=== PATIENT | female | born 1950 | race Caucasian/White ===

== ENCOUNTER 2018-02-19 08:02 | Day surgery (SDC) | payer MEDICARE, OTHER, SELFPAY ==
[2018-02-19] VITALS (10 sets, daily range): BP systolic 114–161; BP diastolic 53–132; PULSE 82–110; RESP 16–18; TEMP 36.2–37.1; O2SAT 91–97; BMI 41.8
--- NOTE | 2018-02-19 09:21 | PCM.HP.STD ---
Problem List (1) Screening for intestinal cancer Status: Acute History of Present Illness Date of Admission: 02/19/18 The patient is a 67 year old F who presents for screening colonoscopy today. Her previous one was 10 years ago. She denies bright red blood per rectum or melena. She denies personal or family history of colon polyps or colon cancer. She states that her health otherwise has been generally stable. Past Medical History Allergies neomycin Allergy (Verified 02/13/18 09:06) Rash peanut Allergy (Verified 02/13/18 09:06) Shortness of breath quinine Allergy (Verified 02/13/18 09:06) Other Home Medications: Ambulatory Orders Medication Instructions Recorded Cyanocobalamin (Vitamin B-12) 1,000 mcg PO DAILY 02/13/18 [Vitamin B-12] Ergocalciferol [Vitamin D] 50,000 unit PO Q7D 02/13/18 Glucosamine/D3/Boswellia Yuki 1 each PO DAILY 02/13/18 [Glucosamine Daily Complex Tab] Levothyroxine Sodium [Synthroid] 150 mcg PO DAILY 02/13/18 Meloxicam [Mobic] 7.5 mg PO DAILY 02/13/18 Multivitamin [Multiple Vitamins] 1 each PO DAILY 02/13/18 Pyridoxine HCl [Vitamin B-6] 100 mg PO DAILY 02/13/18 Smoking Status: Never smoker Review of Systems Constitutional: Denies: Anorexia HEENT: Denies: Difficulty Swallowing Cardiovascular: Denies: Chest Pain Respiratory: Denies: Cough Gastrointestinal: Reports: - - Right flank pain intermittently with the bowel prep. Denies: Abdominal Pain, Hematochezia, Melena Musculoskeletal: Denies: Arm Pain Psychiatric: Denies: Anxiety VTE Information - Inpt Only VTE Present on Admission: No Patient Problems: Active and Suspected Problems Screening for intestinal cancer (Acute) - Physical Exam General: Alert, Oriented x3, Cooperative, No apparent distress HEENT: Atraumatic Oral: Moist Mucosa Neck: Supple Lungs: Clear to auscultation, Normal air movement Cardiovascular: Regular rate, Regular Rhythm Abdomen: Bowel Sounds Present, Soft, Non Tender, Obese, - Extremities: No clubbing Skin: No rashes Neurological: Cranial nerves II-XII grossly intact Psych/Mental Status: Normal Affect Vital Signs Temp Pulse Resp BP Pulse Ox 98.7 F 94 16 142/82 H 95 02/19/18 08:31 02/19/18 08:31 02/19/18 08:31 02/19/18 08:31 02/19/18 08:31 Oxygen Delivery Method Room Air Weight: 259 lb 7.745 oz Body Mass Index (BMI) 41.8 Assessment/Plan All Active Problems Screening for intestinal cancer (Acute) I am recommended the patient is screening colonoscopy. She is aware of the technique, benefits, risks and alternatives. She has had an opportunity to ask and have questions answered. She presents via our open access program. We will proceed as noted. Rajeev Ayala M.D., F.A.C.S.
--- NOTE | 2018-02-19 09:59 | OP.ENDO_ITS ---
Patient Name: Joanie Ramirez Procedure Date: 02/19/2018 9:11 AM Date of : 1950 Age: 67 Procedure: Colonoscopy Indications: Screening for colorectal malignant neoplasm Providers: Rajeev Ayala MD Referring MD: Rajeev Ayala MD Medicines: Midazolam 5.5 mg IV, Meperidine 200 mg IV, Glucagon 1 mg IV Patient Profile: Last Colonoscopy: 10 years ago. Complications: No immediate complications. Procedure: Pre-Anesthesia Assessment: - Prior to the procedure, a History and Physical was performed, and patient medications and allergies were reviewed. The patient's tolerance of previous anesthesia was also reviewed. The risks and benefits of the procedure and the sedation options and risks were discussed with the patient. All questions were answered, and informed consent was obtained. Prior Anticoagulants: The patient has taken no previous anticoagulant or antiplatelet agents. ASA Grade Assessment: II - A patient with mild systemic disease. After reviewing the risks and benefits, the patient was deemed in satisfactory condition to undergo the procedure. After I obtained informed consent, the scope was passed under direct vision. Throughout the procedure, the patient's blood pressure, pulse, and oxygen saturations were monitored continuously. The colonoscope was introduced through the anus and advanced to the sigmoid colon. The colonoscopy was technically difficult and complex due to restricted mobility of the colon. Successful completion of the procedure was aided by increasing the dose of sedation medication. The patient tolerated the procedure poorly due to the patient's body habitus and the patient's discomfort during the procedure. The quality of the bowel preparation was adequate to identify polyps. The colonoscopy was aborted. Moderate Sedation: Moderate (conscious) sedation was personally administered by the endoscopist. The following parameters were monitored: oxygen saturation, heart rate, blood pressure, and response to care. Total physician intraservice time was 15 minutes. Scope In: 9:28:28 AM Scope Out: 9:52:07 AM Total Procedure Duration Time 0 hours 23 minutes 39 seconds Findings: The perianal and digital rectal examinations were normal. Multiple diverticula were found in the sigmoid colon. Impression: - The procedure was aborted. - Diverticulosis in the sigmoid colon. Very tight turn. Adult scope would not pass. An upper scope passed but then became stuck. A pediatric colonoscopy passed the first area at 20cm but could not be advanced b/o patient discomfort. - No specimens collected. Recommendation: - Perform an air contrast barium enema today. - Discharge patient to home. - Resume previous diet. - Continue present medications. - Telephone my office for pathology results in 1 week. - Repeat colonoscopy in 10 years for screening purposes. Procedure Code(s): --- Professional --- 33813, 53, Colonoscopy, flexible; diagnostic, including collection of specimen(s) by brushing or washing, when performed (separate procedure) 63441, 59, Moderate sedation services provided by the same physician or other qualified health wound care center consultant performing the diagnostic or therapeutic service that the sedation supports, requiring the presence of an independent trained observer to assist in the monitoring of the patient's level of consciousness and physiological status; initial 15 minutes of intraservice time, patient age 5 years or older Diagnosis Code(s): --- Professional --- Z12.11, Encounter for screening for malignant neoplasm of colon Z53.8, Procedure and treatment not carried out for other reasons K57.30, Diverticulosis of large intestine without perforation or abscess without bleeding CPT copyright 2017 [employer]. All rights reserved. The codes documented in this report are preliminary and upon client services representative review may be revised to meet current compliance requirements. Rajeev Ayala MD 02/19/2018 9:59:00 AM This report has been signed electronically. Number of Addenda: 0 Note Initiated On: 02/19/2018 9:11 AM
--- OUTSIDE RECORDS SUMMARY | 2018-04-02 20:31 | XMS RPT_ITS ---
:1950 Author Organization OHIP Care Team Providers Name Role Phone RUSSELL SHELL Referring Unavailable TALAMPAS, RUSSELL D Attending Unavailable SHARMILA CONSTANTINO (KNOT BORER) Attending Unavailable TALAMPAS, RUSSELL D Referring Unavailable TALAMPAS, RUSSELL D Attending Unavailable TALAMPAS, RUSSELL D Referring Unavailable TALAMPAS, RUSSELL D Referring Unavailable Nurse, Standard Attending Unavailable Lea Shella Referring Unavailable Rajeev Ayala Attending Unavailable Lazarusampas, Russell Primary Care Unavailable Rajeev Ayala Referring Unavailable Rajeev Ayala Attending Unavailable Rajeev Ayala Referring Unavailable Lazarusampghazala, Russell Primary Care Unavailable Rajeev Ayala Attending Unavailable Rajeev Ayala Referring Unavailable PROBLEMS PROBLEMS DATE TYPE CONDITION / CODE ATTENDING STATUS SOURCE 03/04/2018 Unknown Z12.11 - Encounter Rajeev Ayala for screening for [facility] / Repository Z12.11(ICD-10) 12/12/2017 Active Encounter for NA Active [place] screening mamm[facility] for malignant [place] neoplasm of breast / Repository Z12.31(ICD-10) 10/17/2017 Active Vitamin D NA Active [place] deficiency, [facility] unspecified / [place] E55.9(ICD-10) Repository 10/17/2017 Active Cramp and spasm / NA Active [place] R25.2(ICD-10) [facility] [place] Repository 10/17/2017 Active Other specified NA Active [place] disorders of muscle [facility] / M62.89(ICD-10) [place] Repository 10/17/2017 Active Myalgia / NA Active [place] M79.1(ICD-10) [facility] [place] Repository 04/04/2017 Active Unknown / RUSSELL SHELL Active [place] UNK(Unknown) D [facility] [place] Repository 10/04/2007 Active Personal history of NA Active [place] malignant neoplasm [facility] of thyroid / [place] Z85.850(ICD-10) Repository 07/16/2007 Active Postprocedural NA Active [place] hypothyroidism / [facility] E89.0(ICD-10) [place] Repository 03/28/2017 Active Mixed hyperlipidemia NA Active [place] / E78.2(ICD-10) [facility] [place] Repository 03/28/2017 Active 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 [facility] therapy / [place] Z79.899(ICD-10) Repository PROCEDURES PROCEDURES No Procedure Records FoundRESULTS RESULTS ABDOMEN SINGLE VIEW Observed: 02/20/2018 Status: F Source: [place] 8:53 AM [facility] REPOSITORY [facility] Imaging Services [address] [place] [id number] Abdomen Single View MR#: [id number] Acct: [id number] Name: JOANIE MCKEON Rep #: [id number] : 1950 F 67 From: Michael Ruiz MD PCP: Russell Shell MD Status: REG CLI Study: Abdomen Single View Date of Exam: 02/20/18 Exam# [id number] Ordering Dr: Rajeev Ayala MD STUDY: X-RAY - ABDOMEN/PELVIS REASON FOR EXAM: Female, 67 years old. Incomplete colonoscopy. Patient was scheduled for barium enema. TECHNIQUE: Two AP supine views of the abdomen and pelvis. COMPARISON: None. FINDINGS: The patient was scheduled for a barium enema. The patient refused the barium enema due to pain during insertion of the rectal cannula. There is elevation of the right hemidiaphragm. There is an unremarkable bowel gas pattern. The visualized liver, spleen and kidneys are grossly normal in size and morphology. Normal soft tissue structures. There are diffuse degenerative changes of the visualized lumbar spine. RAD/Abdomen Single View IMPRESSION: Unremarkable bowel gas pattern. Electronically Signed: Michael Ruiz MD at 8:58 EST Tel [phone], Service support , CC: Russell Shell MD; Rajeev Ayala MD Vegetable Preparer: Signed HISTORY AND PHYSICAL Observed: 02/19/2018 Status: F Source: [place] EXAM 4:28 PM [facility] REPOSITORY [facility] Medical Records Department [address] [place] [address] History and Physical 02/19/18920 MR#: [id number] Acct: [id number] Name: JOANIE MCKEON Rep #: [id number] : 1950 67 From: Rajeev Ayala MD PCP: Russell Shell MD Status: [facility] Y Location: EN Problem List (1) Screening for intestinal cancer Status: Acute History of Present Illness Date of Admission: 02/19/18 The patient is a 67 year old F who presents for screening colonoscopy today. Her previous one was 10 years ago. She denies bright red blood per rectum or melena. She denies personal or family history of colon polyps or colon cancer. She states that her health otherwise has been generally stable. Past Medical History Allergies neomycin Allergy (Verified 02/13/18 09:06) Rash peanut Allergy (Verified 02/13/18 09:06) Shortness of breath quinine Allergy (Verified 02/13/18 09:06) Other Home Medications: Ambulatory Orders Medication Instructions Recorded Cyanocobalamin (Vitamin B-12) 1,000 mcg PO DAILY 02/13/18 Smoking Status: Never smoker Review of Systems Constitutional: Denies: Anorexia HEENT: Denies: Difficulty Swallowing Cardiovascular: Denies: Chest Pain Respiratory: Denies: Cough Gastrointestinal: Reports: - - Right flank pain intermittently with the bowel prep. Denies: Abdominal Pain, Hematochezia, Melena Musculoskeletal: Denies: Arm Pain Psychiatric: Denies: Anxiety VTE Information - Inpt Only VTE Present on Admission: No Patient Problems: Active and Suspected Problems Screening for intestinal cancer (Acute) - Physical Exam General: Alert, Oriented x3, Cooperative, No apparent distress HEENT: Atraumatic Oral: Moist Mucosa Neck: Supple Lungs: Clear to auscultation, Normal air movement Cardiovascular: Regular rate, Regular Rhythm Abdomen: Bowel Sounds Present, Soft, Non Tender, Obese, - Extremities: No clubbing Skin: No rashes Neurological: Cranial nerves II-XII grossly intact Psych/Mental Status: Normal Affect Vital Signs Temp Pulse Resp BP Pulse Ox 98.7 F 94 16 142/82 H 95 02/19/18 08:31 02/19/18 08:31 02/19/18 08:31 02/19/18 08:31 02/19/18 08:31 Oxygen Delivery Method Room Air Weight: 259 lb 7.745 oz Body Mass Index (BMI) 41.8 Assessment/Plan All Active Problems Screening for intestinal cancer (Acute) I am recommended the patient is screening colonoscopy. She is aware of the technique, benefits, risks and alternatives. She has had an opportunity to ask and have questions answered. She presents via our open access program. We will proceed as noted. Rajeev Ayala M.D., F.A.C.S. 02/19/18 [id number] <Electronically signed by Rajeev Ayala MD> Date Rajeev Ayala MD Cosigner Signature: Date (if applicable) CC: Russell Shell MD; Rajeev Ayala MD Signed OPERATIVE REPORT - Observed: 02/19/2018 Status: F Source: [place] [facility] 9:59 AM [facility] REPOSIT[facility] Medical Records Department [address] [place] [address] Operative Report - Endoscopy MR#: [id number] Acct: [id number] Name: JOANIE MCKEON Rep #: [id number] : 1950 67 From: Rajeev Ayala MD PCP: Russell Shell MD Status: REG [facility] Patient Name: Joanie Mckeon Procedure Date: 02/19/2018 9:11 AM Date of : 1950 Age: 67 Procedure: Colonoscopy Indications: Screening for colorectal malignant neoplasm Providers: Rajeev Ayala MD Referring MD: Rajeev Ayala MD Medicines: Midazolam 5.5 mg IV, Meperidine 200 mg IV, Glucagon 1 mg IV Patient Profile: Last Colonoscopy: 10 years ago. Complications: No immediate complications. Procedure: Pre-Anesthesia Assessment: - Prior to the procedure, a History and Physical was performed, and patient medications and allergies were reviewed. The patient's tolerance of previous anesthesia was also reviewed. The risks and benefits of the procedure and the sedation options and risks were discussed with the patient. All questions were answered, and informed consent was obtained. Prior Anticoagulants: The patient has taken no previous anticoagulant or antiplatelet agents. ASA Grade Assessment: II - A patient with mild systemic disease. After reviewing the risks and benefits, the patient was deemed in satisfactory condition to undergo the procedure. After I obtained informed consent, the scope was passed under direct vision. Throughout the procedure, the patient's blood pressure, pulse, and oxygen saturations were monitored continuously. The colonoscope was introduced through the anus and advanced to the sigmoid colon. The colonoscopy was technically difficult and complex due to restricted mobility of the colon. Successful completion of the procedure was aided by increasing the dose of sedation medication. The patient tolerated the procedure poorly due to the patient's body habitus and the patient's discomfort during the procedure. The quality of the bowel preparation was adequate to identify polyps. The colonoscopy was aborted. Moderate Sedation: Moderate (conscious) sedation was personally administered by the endoscopist. The following parameters were monitored: oxygen saturation, heart rate, blood pressure, and response to care. Total physician intraservice time was 15 minutes. Scope In: 9:28:28 AM Scope Out: 9:52:07 AM Total Procedure Duration Time 0 hours 23 minutes 39 seconds Findings: The perianal and digital rectal examinations were normal. Multiple diverticula were found in the sigmoid colon. Impression: - The procedure was aborted. - Diverticulosis in the sigmoid colon. Very tight turn. Adult scope would not pass. An upper scope passed but then became stuck. A pediatric colonoscopy passed the first area at 20cm but could not be advanced b/o patient discomfort. - No specimens collected. Recommendation: - Perform an air contrast barium enema today. - Discharge patient to home. - Resume previous diet. - Continue present medications. - Telephone my office for pathology results in 1 week. - Repeat colonoscopy in 10 years for screening purposes. Procedure Code(s): --- Professional --- 61055, 53, Colonoscopy, flexible; diagnostic, including collection of specimen(s) by brushing or washing, when performed (separate procedure) 27523, 59, Moderate sedation services provided by the same physician or other qualified health care tech performing the diagnostic or therapeutic service that the sedation supports, requiring the presence of an independent trained observer to assist in the monitoring of the patient's level of consciousness and physiological status; initial 15 minutes of intraservice time, patient age 5 years or older Diagnosis Code(s): --- Professional --- Z12.11, Encounter for screening for malignant neoplasm of colon Z53.8, Procedure and treatment not carried out for other reasons K57.30, Diverticulosis of large intestine without perforation or abscess without bleeding CPT copyright 2017 [place] [employer]. All rights reserved. The codes documented in this report are preliminary and upon radiologic therapist review may be revised to meet current compliance requirements. Rajeev Ayala MD 02/19/2018 9:59:00 AM This report has been signed electronically. Number of Addenda: 0 Note Initiated On: 02/19/2018 9:11 AM 02/19/18 0959 Date Rajeev Ayala MD Cosigner Signature: Date (if indicated) CC: Russell Shell MD; Rajeev Ayala MD Date Dictated: 02/19/18 0911 Date Transcribed: Vegetable Preparer: MINAL Signed CNCO Observed: 12/12/2017 Status: COMPLETED Source: [place] 10:16 AM [facility] REPOSITORY HNO ID: [id number] Author: Mammography Coordinator Service: (none) Author Type: Physician Type: Letter Filed: 12/13/2017 11:31 PM Note Text: December 12, 2017 PID: [id number] Joanie Mckeon [address] [place] [address] Dear Ms. Mckeon, We are pleased to inform you that the results of your recent breast imaging exam on 12/12/2017 are normal. Early detection of cancer is very important. We also understand recommendations regarding breast cancer screening are controversial. Please discuss with your primary care provider which strategy is best for you and whether a mammogram is right for you. Your imaging studies and report will be kept on file at [facility] as part of your permanent medical record and are available for your continuing care. Thank you for allowing us to help in meeting your health care needs. Sincerely, Dr. Slater Interpreting Radiologist [facility] (Normal over 40) [facility] SCREENING Observed: 12/12/2017 Status: F Source: [place] 10:09 AM [facility] REPOSITORY * * *Final Report* * * DATE OF EXAM: Dec 12 2017 10:09AM [facility] 0581 - [facility] SCREENING / PROCEDURE REASON: Encounter for screening mammogram for malignant neoplasm of breast * * * * Physician Interpretation * * * * RESULT: #[id number] - [facility] SCREENING BILATERAL DIGITAL SCREENING MAMMOGRAM WITH CAD: 12/12/2017 HISTORY: Encounter For Screening Mammogram For Malignant Neoplasm Of Breast /patient reports NO breast problems /priors available for comparison. RESULT: TECHNIQUE: The study was acquired using full field digital technology and interpreted from soft copy. Current study was also evaluated with a Computer Aided Detection (CAD). Comparison is made to exams dated: 01/05/2016 mammogram and 10/07/2014 mammogram - [facility]. The tissue of both breasts is predominantly fatty. No significant masses, calcifications, or other findings are seen in either breast. There has been no significant interval change. IMPRESSION: NEGATIVE There is no mammographic evidence of malignancy. A 1 year screening mammogram is recommended. David woodall/gaudencio:12/12/2017 10:16:53 Time Clock Inspector: Anastasia Rizvi RT(R)(Yari), [facility] letter sent: Normal over 40 Mammogram BI-RADS: 1 Negative Multiple national specialty organizations have released breast cancer screening guidelines for women at average risk for developing breast cancer - guidelines that are based on both evidence and opinion, yet differ on when to start and how often to screen for breast cancer. With representation from Breast Imaging, Internal Medicine, Women's Health, Family Medicine, and Medical/Surgical Oncology, the [facility] has carefully reviewed the data and reached the following consensus: 1) All women should engage in shared decision-making with their providers to decide when to start and how often to screen; 2) All women should have the opportunity to start screening mammography at age 40; 3) For women ages 45-55, we recommend annual screening mammograms; 4) For women ages 55 and over, we support both the transition from an annual to a biennial interval if this aligns more with patient's values and preferences, or continuation with annual screening; 5) All women should discuss with their providers when to stop screening mammograms. Vegetable Preparer: Gaudencio Transcribe Date/Time: Dec 12 2017 10:10A Dictated by: DAVID SLATER MD This examination was interpreted and the report reviewed and electronically signed by: DAVID SLATER MD on Dec 12 2017 10:16AM EST [id number] Collected: 10/17/2017 Status: F Source: [place] 10:20 AM [facility] REPOSIT[facility] TYPE CODE TESTS RESULT OUT OF REFERENCE UNITS RANGE LAB WBC 3.70-11.00 k/uL WBC 5.11 LAB RBC 3.90-5.20 m/uL RBC High 5.30 LAB HGB 11.5-15.5 g/dL Hemoglobin 15.1 LAB HCT 36.0-46.0 % High Hematocrit 47.9 LAB MCV 80.0-100.0 fL MCV 90.4 LAB MCH 26.0-34.0 pG MCH 28.5 LAB MCHC 30.5-36.0 g/dL MCHC 31.5 LAB RDWCV 11.5-15.0 % RDW-CV 14.2 LAB PLTCT 150-400 k/uL Platelet Count 202 LAB MPV 9.0-12.7 fL MPV 9.9 LAB ABSNUC <0.01 k/uL Absolute nRBC <0.01 Performed By: #### CBC, WSR, CK, CMP, LIPB, MG1, FT4, TSH, VITD #### [facility] [employer] [place], [place] [address] SED RATE WESTERGREN Collected: 10/17/2017 Status: F Source: [place] 10:20 AM [facility] [place] REPOSITORY TYPE CODE TESTS RESULT OUT OF REFERENCE UNITS RANGE LAB WSR 0-20 mm/hr Sed Rate High Westergren 22 Performed By: #### CBC, WSR, CK, CMP, LIPB, MG1, FT4, TSH, VITD #### [facility] [employer] [place], [place] [address] CK Collected: 10/17/2017 Status: F Source: [facility] 10:20 AM [facility] REPOSITORY TYPE CODE TESTS RESULT OUT OF RANGE REFERENCE UNITS LAB CK 42-196 U/L CK 106 Result Comment: Please note the updated, gender-specific reference range for this test (effective 03/09/2016). Performed By: #### CBC, WSR, CK, CMP, LIPB, MG1, FT4, TSH, VITD #### [facility] [employer] [address] [place], [place] [address] COMP METABOLIC PANEL Collected: 10/17/2017 Status: F Source: [place] 10:20 AM [facility] REPOSITORY TYPE CODE TESTS RESULT OUT OF REFERENCE UNITS RANGE LAB TP 6.3-8.0 g/dL Protein, Total 7.0 LAB ALB 3.9-4.9 g/dL Albumin 4.0 LAB CA 8.5-10.2 mg/dL Calcium, Total 9.7 LAB TBIL 0.2-1.3 mg/dL Bilirubin, Total 0.4 LAB ALKP 32-117 U/L Alkaline Phosphatase 107 LAB AST 13-35 U/L AST High 66 LAB GLU 74-99 mg/dL Glucose 93 Result Comment: The [place] [employer] Association (ADA) provides guidance for cutoff values for fasting glucose and random glucose. The ADA defines fasting as no caloric intake for at least 8 hours. Fas ting plasma glucose results between 100 to 125 mg/dL indicate increased risk for diabetes (prediabetes). Fasting plasma glucose results greater than or equal to 126 mg/dL meet the criteria for diagnosis of diabetes. In the absence of unequivocal hyperglycemia, results should be confirmed by repeat testing. In a patient with classic symptoms of hyperglycemia or hyperglycemic crisis, random plasma glucose results greater than or equal to 200 mg/dL meet the criteria for diagnosis of diabetes. Reference: Standards of Medical Care in Diabetes 2016, [place] [employer]. Diabetes Care. 2016.39(Suppl 1). LAB BUN 7-21 mg/dL BUN 14 LAB CRET 0.58-0.96 mg/dL Creatinine 0.73 LAB NA 136-144 mmol/L Sodium 142 LAB K 3.7-5.1 mmol/L Potassium 4.6 LAB CL 97-105 mmol/L Chloride 102 LAB CO2 22-30 mmol/L CO2 26 LAB AGAP 9-18 mmol/L Anion Gap 14 LAB ALT 7-38 U/L ALT High 68 LAB GFRAA eGFR- Amer. >60 LAB GFRNAA . eGFR-All Other Races >60 Result Comment: eGFR (Estimated GFR) Units of measure: mL/min/1.73 meters squared eGFR is derived from the reexpressed MDRD Study equation using the following parameters: serum creatinine, age, gender and race. The creatinine assay has been calibrated to be traceable to IDMS. An eGFR <60 mL/min/1.73m2 for >3 months is consistent with chronic kidney disease. Refer to KDOQI guidelines for clinical interpretation. In patients with unstable renal function, e.g. those with acute kidney injury, the eGFR may not accurately reflect actual GFR. Performed By: #### CBC, WSR, CK, CMP, LIPB, MG1, FT4, TSH, VITD #### [facility] [address] [place] [id number] LIPID PANEL, BASIC Collected: 10/17/2017 Status: F Source: [place] 10:20 AM [facility] REPOSITORY TYPE CODE TESTS RESULT OUT OF REFERENCE UNITS RANGE LAB CHOL <200 mg/dL Cholesterol High 209 Result Comment: <200 mg/dL, Desirable 200-239 mg/dL, Borderline high >239 mg/dL, High LAB TRIGLY <150 mg/dL Triglyceride High 152 Result Comment: <150 mg/dL, Normal 150-199 mg/dL, Borderline high 200-499 mg/dL, High >499 mg/dL, Very high LAB HDL >39 mg/dL HDL-Cholesterol 48 Result Comment: 40-59 mg/dL, Acceptable >59 mg/dL, High: Negative risk factor for coronary heart disease <40 mg/dL, Low: Positive risk factor for coronary heart disease LAB LDL <100 mg/dL LDL-Cholesterol High 131 Result Comment: <100 mg/dL, Optimal 100-129 mg/dL, Near optimal/above optimal 130-159 mg/dL, Borderline high 160-189 mg/dL, High >189 mg/dL, Very high Secondary prevention optimal LDL Cholesterol levels are recommended to be < 70 mg/dL LAB NONHDL <130 mg/dL Non HDL High Cholesterol 161 Result Comment: <130 mg/dL, Optimal 130-159 mg/dL, Near optimal/above optimal 160-189 mg/dL, Borderline high 190-219 mg/dL, High >219 mg/dL, Very high Secondary prevention optimal non HDL Cholesterol levels are recommended to be < 100 mg/dL LAB FT hrs Fasting Time 12 LAB VLDL <30 mg/dL High VLDL Cholesterol 30 LAB TCHDL <5.10 TC:HDL Ratio 4.35 LAB LDLHDL <2.54 High LDL:HDL Ratio 2.73 Result Comment: Reference: 1. National Cholesterol Education Program ATP III Guideline At-A-Glance Quick Desk Reference: National Heart, Lung, and Blood [place]. National Institutes of Health. 2001: NIH Publication No. 01-3305. 2. An International Atherosclerosis Society position paper: global recommendations for the management of dyslipidemia: executive summary, Atherosclerosis. 2014: 232(2):410-413. Performed By: #### CBC, WSR, CK, CMP, LIPB, MG1, FT4, TSH, VITD #### [facility] [employer] [address] [place] [address] MAGNESIUM Collected: 10/17/2017 Status: F Source: [place] 10:20 AM [facility] REPOSITORY TYPE CODE TESTS RESULT OUT OF REFERENCE UNITS RANGE LAB MG 1.7-2.3 mg/dL Magnesium 2.2 Performed By: #### CBC, WSR, CK, CMP, LIPB, MG1, FT4, TSH, VITD #### [facility] [employer] [address] [place] [address] FREE T4 Collected: 10/17/2017 Status: F Source: [place] 10:20 AM [facility] REPOSITORY TYPE CODE TESTS RESULT OUT OF RANGE REFERENCE UNITS LAB FT4 0.9-1.7 ng/dL Free T4 1.6 Performed By: #### CBC, WSR, CK, CMP, LIPB, MG1, FT4, TSH, VITD #### [place] [address] TSH Collected: 10/17/2017 Status: F Source: [place] 10:20 AM [facility] REPOSITORY TYPE CODE TESTS RESULT OUT OF RANGE REFERENCE UNITS LAB TSH 0.400-5.500 uU/mL TSH 1.150 Performed By: #### CBC, WSR, CK, CMP, LIPB, MG1, FT4, TSH, VITD #### [facility] [employer] [address] [place] [address] VITAMIN D 25 HYDROXY Collected: 10/17/2017 Status: F Source: [place] 10:20 AM [facility] REPOSITORY TYPE CODE TESTS RESULT OUT OF REFERENCE UNITS RANGE LAB VITD 31.0-80.0 ng/mL Vitamin D 25 58.7 Hydroxy Result Comment: Classification of 25 [place] Vitamin D status: Insufficiency/Moderate Deficiency: < or = 30 ng/mL Sufficiency/Optimal Levels: 31 to 80 ng/mL Toxicity: > 100 ng/mL Test performed by chemiluminescent immunoassay. Performed By: #### CBC, WSR, CK, CMP, LIPB, MG1, FT4, TSH, VITD #### [place] [address] PROGRESS Observed: 10/17/2017 Status: COMPLETED Source: [place] 9:16 AM [facility] [place] REPOSITORY O ID: [id number] Author: Russell Shell Service: (none) Author Type: Physician Type: Progress Notes Filed: 10/30/2017 11:17 PM Note Text: HISTORY Joanie Mckeon is a 66 year old lady here for yearly exam and follow up appointment. Since June, a lot of back pain. Thought was more left sided sciatica and did exercises. Did not help. Saw Dr. Pop in August--Xray. Shot of steroids in arm--helped. When laying in bed, left foot will tingle. Better if changes position. Gait has been off. Even after steroid shot. Balance off too. Heaviness in legs that limits activity. Cannot golf 18 holes now. Cannot walk as far as used to without legs getting really tired. Pain outside hip area, not in groin. Has had pain above ankle bone. Also has had more leg cramps. Has been working outside. Did take electrolytes supplement (and needing too). Was able to do stretching exercises before June then after, legs too weak. Had prior back injections--several years ago. Dr. Lorenzana. Doing well with protein in her diet with the carbs. Episode of right cervical radiculopathy that resolved already. 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 Cannot sit too long either. 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 SYNTHROID 137 mcg tablet Take 1 tablet by mouth as directed. To replace 150 mcg dose one or two days weekly as directed based on labs meloxicam (MOBIC) 7.5 mg tablet Take 1 tablet by mouth twice daily. SYNTHROID 150 mcg tablet Take 1 tablet by mouth once daily. Or as directed. Do not substitute with generic Magnesium 200 mg tab Take by mouth. Takes (1) 125 mg per week for leg cramps as needed (3 [id number]) cholecalciferol, Vitamin D3, (VITAMIN D3) 50,000 unit cap capsule Take 1 capsule by mouth once each week. DIPHENHYDRAMINE HCL (ANTIHISTAMINE ALLERGY ORAL) Take by mouth once daily. albuterol HFA (VENTOLIN HFA) 90 mcg/actuation inhaler Inhale 2 Puffs as instructed every 4 hours as needed for Wheezing/Shortness of Breath. ondansetron orally disintegrating (ZOFRAN ODT) 4 mg disintegrating tablet Take 1 tablet by mouth every 6 hours as needed for Nausea/Vomiting. VIT A,C AND E/B3/B2/LUT/MIN/GLUT (EYE-NIK ORAL) Take by mouth once daily. MULTI-VITAMIN ORAL Take by mouth once daily. CALCIUM CARBONATE/VITAMIN D3 (CALCIUM + D ORAL) Take by mouth three times daily. No current facility-administered medications for this visit. ALLERGIES Allergen Reactions - Neomycin Rash Internal Neomycin From knee surgery implant - Peanuts - Quinine FAMILY HISTORY Problem Relation Age of Onset - Pancreatic cancer [OTHER] Mother - Heart [place] 59 [place] and [place] THYROID DYSFUNCTION, DM (smoker and overweight) - Colon Cancer Maternal Aunt - Heart Brother CABG AT AGE 50 (nonsmoker; not overweight) - essential tremor [OTHER] Brother Social History Marital status: Spouse name: Adrian Years of education: Number of children: 2 Social History Main Topics Smoking status: Never Smoker Smokeless tobacco: Never Used Alcohol use: Yes Comment: occasional Drug use: No Sexual activity: Yes Partners with: Male REVIEW OF SYSTEMS Aside from above, Constitutional, HEENT, CV, PULM, GI, , PSYCH, DERM, HEM/ONC, NEURO negative. PHYSICAL EXAMINATION: Blood pressure 158/90, pulse 76, resp. rate 16, height 163.8 cm (5' 4.5), weight 122 kg (269 lb). Last 5 Encounter BP Readings: Date: BP: 10/17/2017 158/90 07/04/2017 129/90 04/04/2017 136/78 09/13/2016 154/78 04/11/2016 139/83 Last 5 Encounter Wt Readings: Date: Wt: 10/17/2017 122 kg (269 lb) 07/04/2017 0 kg (0 lb) 04/04/2017 122.5 kg (270 lb) 09/13/2016 124.3 kg (274 lb) 04/11/2016 122.5 kg (270 lb) General appearance: well appearing, in no acute distress, well-hydrated, well nourished Skin: Skin color, texture, turgor normal. No significant rashes or lesions. Head: Normal Eyes: Anicteric sclera. Pupils are equally round and reactive to light. Extraocular movements are intact. Ears: External ears normal. Canals clear. TM's unremarkable. Nose/Sinuses: negative Oropharynx: Lips, mucosa, and tongue normal. Teeth and gums normal. Oropharynx normal. Neck: Neck supple, no adenopathy; thyroid symmetric, normal size, no bruits. Lungs: Lungs clear to auscultation Heart: negative. RRR without murmur, gallop, or rubs. No ectopy. Abdomen: Abdomen soft, non-tender. Bowel sounds normal. No masses, organomegaly Extremities: Extremities normal. No deformities, edema, or skin discoloration. Good capillary refill. Musculoskeletal: grossly normal--tender left SI area Peripheral pulses: Normal Neuro: Gait normal. Reflexes normal and symmetric. Sensation grossly intact. No gross focal neurological deficits. Labs reviewed. ASSESSMENT AND PLAN See diagnoses and orders Encounter Diagnosis ICD-10-CM 1. Postsurgical hypothyroidism E89.0 T4 FREE/FREE THYROX TSH BLD 2. Vitamin D deficiency E55.9 VITAMIN D 25 HYDROXY 3. Lumbar disc disease with radiculopathy M51.16 S1 4. Neurogenic claudication M48.062 5. Mixed hyperlipidemia E78.2 6. Muscle fatigue M62.89 CK CREATINE KINASE SED RATE WESTERGREN 7. Encounter for long-term current use of medication Z79.899 COMP METABOLIC PANEL MAGNESIUM BLD CBC 8. Leg cramping R25.2 COMP METABOLIC PANEL CK CREATINE KINASE MAGNESIUM BLD 9. Myalgia M79.1 SED RATE WESTERGREN Balacne issues--allergies and vertigo issues plus numbness in left foot Labs as above. Consider further evaluation and treatment as indicated. Might need PT, pain management or spine surgery evaluation. Above issues addressed with patient. Patient involved in shared decision making for management of her medical issues. History and medications reviewed. Epic updated as needed Refills taken care of and meds adjusted as indicated after reviewed history, exam and labs. Health Maintenance reviewed. Updated record and/or ordered tests as recorded. Encouraged on efforts at healthy diet and regular exercise and adequate sleep. The majority of the visit was spent counseling and/or coordinating care for the patient. Ohyf-jl-qobs time was at least 40 minutes. Russell Shell MD CNOV Observed: 10/17/2017 Status: COMPLETED Source: [place] 8:20 AM [facility] REPOSITORY Office Visit (INTMWS) JOANIE MCKEON ([id number]) 1950 F Date Time Provider Department 10/17/17 8:20 AM RUSSELL SHELL INTMWS During your visit today, we recorded the following information about you: Pulse Respiration Blood pressure Weight 76/minute 16/minute 162/92 122 kg Height 1.638 m Russell Shell MD 10/30/2017 11:17 PM Signed HISTORY Joanie J Ashley is a 66 year old lady here for yearly exam and follow up appointment. Since June, a lot of back pain. Thought was more left sided sciatica and did exercises. Did not help. Saw Dr. Pop in August--Xray. Shot of steroids in arm--helped. When laying in bed, left foot will tingle. Better if changes position. Gait has been off. Even after steroid shot. Balance off too. Heaviness in legs that limits activity. Cannot golf 18 holes now. Cannot walk as far as used to without legs getting really tired. Pain outside hip area, not in groin. Has had pain above ankle bone. Also has had more leg cramps. Has been working outside. Did take electrolytes supplement (and needing too). Was able to do stretching exercises before June then after, legs too weak. Had prior back injections--several years ago. Dr. Lorenzana. Doing well with protein in her diet with the carbs. Episode of right cervical radiculopathy that resolved already. 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 Cannot sit too long either. PAST MEDICAL HISTORY Diagnosis Date - Internal hemorrhoids without mention of complication - Obesity, unspecified - Other and unspecified hyperlipidemia - Personal history of malignant neoplasm of thyroid - Postsurgical hypothyroidism 07/16/2007 - Vertigo 02/15/2005 - VITAMIN D DEFICIENCY NOS 09/04/2008 Current Outpatient Prescriptions: Adggehhxjqr-Jveqvltpu-Sqy C-Mn (GLUCOSAMINE CHONDROITIN MAXSTR) 500-400 mg cap Take 1 capsule by mouth once daily. SYNTHROID 137 mcg tablet Take 1 tablet by mouth as directed. To replace 150 mcg dose one or two days weekly as directed based on labs meloxicam (MOBIC) 7.5 mg tablet Take 1 tablet by mouth twice daily. SYNTHROID 150 mcg tablet Take 1 tablet by mouth once daily. Or as directed. Do not substitute with generic Magnesium 200 mg tab Take by mouth. Takes (1) 125 mg per week for leg cramps as needed (3 [id number]) cholecalciferol, Vitamin D3, (VITAMIN D3) 50,000 unit cap capsule Take 1 capsule by mouth once each week. DIPHENHYDRAMINE HCL (ANTIHISTAMINE ALLERGY ORAL) Take by mouth once daily. albuterol HFA (VENTOLIN HFA) 90 mcg/actuation inhaler Inhale 2 Puffs as instructed every 4 hours as needed for Wheezing/Shortness of Breath. ondansetron orally disintegrating (ZOFRAN ODT) 4 mg disintegrating tablet Take 1 tablet by mouth every 6 hours as needed for Nausea/Vomiting. VIT A,C AND E/B3/B2/LUT/MIN/GLUT (EYE-NIK ORAL) Take by mouth once daily. MULTI-VITAMIN ORAL Take by mouth once daily. CALCIUM CARBONATE/VITAMIN D3 (CALCIUM + D ORAL) Take by mouth three times daily. No current facility-administered medications for this visit. ALLERGIES Allergen Reactions - Neomycin Rash Internal Neomycin From knee surgery implant - Peanuts - Quinine FAMILY HISTORY Problem Relation Age of Onset - Pancreatic cancer [OTHER] Mother - Heart [place] 59 [place] and [place] THYROID DYSFUNCTION, DM (smoker and overweight) - Colon Cancer Maternal Aunt - Heart Brother CABG AT AGE 50 (nonsmoker; not overweight) - essential tremor [OTHER] Brother Social History Marital status: Spouse name: Adrian Years of education: Number of children: 2 Social History Main Topics Smoking status: Never Smoker Smokeless tobacco: Never Used Alcohol use: Yes Comment: occasional Drug use: No Sexual activity: Yes Partners with: Male REVIEW OF SYSTEMS Aside from above, Constitutional, HEENT, CV, PULM, GI, , PSYCH, DERM, HEM/ONC, NEURO negative. PHYSICAL EXAMINATION: Blood pressure 158/90, pulse 76, resp. rate 16, height 163.8 cm (5' 4.5), weight 122 kg (269 lb). Last 5 Encounter BP Readings: Date: BP: 10/17/2017 158/90 07/04/2017 129/90 04/04/2017 136/78 09/13/2016 154/78 04/11/2016 139/83 Last 5 Encounter Wt Readings: Date: Wt: 10/17/2017 122 kg (269 lb) 07/04/2017 0 kg (0 lb) 04/04/2017 122.5 kg (270 lb) 09/13/2016 124.3 kg (274 lb) 04/11/2016 122.5 kg (270 lb) General appearance: well appearing, in no acute distress, well-hydrated, well nourished Skin: Skin color, texture, turgor normal. No significant rashes or lesions. Head: Normal Eyes: Anicteric sclera. Pupils are equally round and reactive to light. Extraocular movements are intact. Ears: External ears normal. Canals clear. TM's unremarkable. Nose/Sinuses: negative Oropharynx: Lips, mucosa, and tongue normal. Teeth and gums normal. Oropharynx normal. Neck: Neck supple, no adenopathy; thyroid symmetric, normal size, no bruits. Lungs: Lungs clear to auscultation Heart: negative. RRR without murmur, gallop, or rubs. No ectopy. Abdomen: Abdomen soft, non-tender. Bowel sounds normal. No masses, organomegaly Extremities: Extremities normal. No deformities, edema, or skin discoloration. Good capillary refill. Musculoskeletal: grossly normal--tender left SI area Peripheral pulses: Normal Neuro: Gait normal. Reflexes normal and symmetric. Sensation grossly intact. No gross focal neurological deficits. Labs reviewed. ASSESSMENT AND PLAN See diagnoses and orders Encounter Diagnosis ICD-10-CM 1. Postsurgical hypothyroidism E89.0 T4 FREE/FREE THYROX TSH BLD 2. Vitamin D deficiency E55.9 VITAMIN D 25 HYDROXY 3. Lumbar disc disease with radiculopathy M51.16 S1 4. Neurogenic claudication M48.062 5. Mixed hyperlipidemia E78.2 6. Muscle fatigue M62.89 CK CREATINE KINASE SED RATE WESTERGREN 7. Encounter for long-term current use of medication Z79.899 COMP METABOLIC PANEL MAGNESIUM BLD CBC 8. Leg cramping R25.2 COMP METABOLIC PANEL CK CREATINE KINASE MAGNESIUM BLD 9. Myalgia M79.1 SED RATE WESTERGREN Ghazal issues--allergies and vertigo issues plus numbness in left foot Labs as above. Consider further evaluation and treatment as indicated. Might need PT, pain management or spine surgery evaluation. Above issues addressed with patient. Patient involved in shared decision making for management of her medical issues. History and medications reviewed. Epic updated as needed Refills taken care of and meds adjusted as indicated after reviewed history, exam and labs. Health Maintenance reviewed. Updated record and/or ordered tests as recorded. Encouraged on efforts at healthy diet and regular exercise and adequate sleep. The majority of the visit was spent counseling and/or coordinating care for the patient. Qvyv-sn-secj time was at least 40 minutes. MD Brent Walden 10/17/2017 10:27 AM Signed Patient advised a nurse visit within 28 days to recheck bp. 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 VISUAL ACUITY: Today's exam: Vision Correction? Contacts: RIGHT EYE: 20/25 LEFT EYE: 20/ 100 BOTH EYES: 20/20 Wearing monovision contact lenses. Referring Provider: SELF [[id number]] Allergies As of Date: 10/17/2017 Noted Allergy Reaction NEOMYCIN 05/18/2014 2 - Rash Comments: Internal Neomycin From knee surgery implant PEANUTS 02/15/2005 QUININE 07/03/2007 Date Reviewed: 10/17/2017 Reviewed by: Brent Dash - Fully Assessed Reason for Visit: Yearly Exam [187] Primary Visit Diagnosis:Postsurgical hypothyroidism [E89.0] Other Visit Diagnoses:Vitamin D deficiency [E55.9] Lumbar disc disease with radiculopathy [M51.16] Comment:S1 Neurogenic claudication [M48.062] Mixed hyperlipidemia [E78.2] Muscle fatigue [M62.89] Encounter for long-term current use of medication [Z79.899] Leg cramping [R25.2] Myalgia [M79.1] Order(s):COMP METABOLIC PANEL [SQCMP] Order #: [id number] FUTURE CK CREATINE KINASE [SQCK] Order #: [id number] FUTURE T4 FREE/FREE THYROX [SQFT4] Order #: [id number] FUTURE TSH BLD [SQTSH] Order #: [id number] FUTURE SED RATE WESTERGREN [SQWSR] Order #: [id number] FUTURE VITAMIN D 25 HYDROXY [SQVITD] Order #: [id number] FUTURE MAGNESIUM BLD [SQMG1] Order #: [id number] FUTURE CBC [SQCBC] Order #: [id number] FUTURE LIPID PANEL BASIC [SQLIPB] Order #: [id number] FUTURE Prescriptions as of 10/17/2017 Sig: EVZPBSQVXBG-TYGACGUCV-JIS C-M* Take 1 capsule by mouth once * SYNTHROID 137 MCG TABLET Take 1 tablet by mouth as dir* MELOXICAM 7.5 MG TABLET Take 1 tablet by mouth twice * SYNTHROID 150 MCG TABLET Take 1 tablet by mouth once d* MAGNESIUM 200 MG TABLET Take by mouth. Takes (1) 125* CHOLECALCIFEROL (VITAMIN D3) * Take 1 capsule by mouth once * ANTIHISTAMINE ALLERGY ORAL Take by mouth once daily. ALBUTEROL SULFATE HFA 90 MCG/* Inhale 2 Puffs as instructed * ONDANSETRON 4 MG DISINTEGRATI* Take 1 tablet by mouth every * EYE-NIK ORAL Take by mouth once daily. MULTI-VITAMIN ORAL Take by mouth once daily. CALCIUM + D ORAL Take by mouth three times da* Medication notes this encounter SYNTHROID 137 MCG TABLET >> Brent Dash 10/17/2017 8:29 AM >> BRENT DASH SunOct 17, 2017 8:29 AM Taking 150 mcg daily ALBUTEROL SULFATE HFA 90 MCG/ACTUATION AEROSOL INHALER >> Brent Dash 10/17/2017 8:31 AM >> BRENT DASH SunOct 17, 2017 8:31 AM Not using ONDANSETRON 4 MG DISINTEGRATING TABLET >> Brent Dash 10/17/2017 8:31 AM >> BRENT DASH SunOct 17, 2017 8:31 AM Not taking Problem List As Of Date 10/17/2017 Noted Resolved Vertigo [R42] INVALID FOR* POSTSURGICAL HYPOTHYROID [E89.0] INVALID FOR* Hyperlipidemia [E78.5] INVALID FOR* PERS HX OF THYROID MALIGNANCY [Z85.850] Vitamin D deficiency [E55.9] INVALID FOR* Obesity, Class III, BMI 40-49.9 (morbid obesity* Visit Notes: >> Brent Dash Wed Oct 17, 2017 10:24 AM Status: Signed Patient advised a nurse visit within 28 days to recheck bp. 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 VISUAL ACUITY: Today's exam: Vision Correction? Contacts: RIGHT EYE: 20/25 LEFT EYE: 20/ 100 BOTH EYES: 20/20 Wearing monovision contact lenses. Medications Discontinued During This Encounter methylPREDNISolone (MEDROL DOSE-PACK* 1 Pa* 0 09/13/2016 10/17/2017 Sig: Take medications as directed on packaging. Take with food. Disc: Course of therapy completed Disposition: Return in about 6 months (around 04/19/2018) for 6 months follow up, With labs prior. Follow-up and Disposition History Recorded Encounter Status:Closed by RUSSELL SHELL MD on 10/30/17 PROGRESS Observed: 07/04/2017 Status: COMPLETED Source: [place] 3:05 PM [facility] [place] REPOSITORY O ID: [id number] Author: Sharmila (Holli) Older Service: (none) Author Type: Nurse Practitioner Type: Progress Notes Filed: 07/05/2017 9:44 AM Note Text: CC Patient presents with: Established Patient: elevated blood pressure with headaches occuring daily x 3 weeks HPI Joanie Mckeon is a 66 year old female who presents to the office for blood pressure. Her visit today is for evaluation. Had a few home blood pressure readings that were high, no history of hypertension. Last night BP was 180/90 but average BP's at home have been in the 120's over 80's range. Symptoms referable to elevated blood pressure (headache, chest pain, palpitations, dyspnea, peripheral edema, fatigue, blurred vision): Reports headache. She attributes this to chronic neck pain and sinus symptoms. Last 4 Encounter BP Readings: Date: BP: 07/04/2017 129/90 04/04/2017 136/78 09/13/2016 154/78 04/11/2016 139/83 Exercise: denies regular aerobic exercise. Diet: Watches diet for salt (salty snacks, added salt, processed frozen/canned foods), sugary/sweet snacks, unhealthy fats: No Caffeine: rarely Water intake: a lot Alcohol intake: No Smoker: No Frequent NSAID use: Yes takes meloxicam 7.5 mh daily Decongestants: No Thyroid disorders? Thyroidectomy due to cancer. Taking Levothyroxine. REVIEW OF SYSTEMS See HPI PAST MEDICAL HISTORY Diagnosis Date - Internal hemorrhoids without mention of complication - Obesity, unspecified - Other and unspecified hyperlipidemia - Personal history of malignant neoplasm of thyroid - Postsurgical hypothyroidism 07/16/2007 - Vertigo 02/15/2005 - VITAMIN D DEFICIENCY NOS 09/04/2008 PAST SURGICAL HISTORY Procedure Laterality Date - BONE MARROW ASPIRATE AND BIOPSY 1999 - [facility] - PAST SURGICAL HISTORY OF ~2004 arthroscopic knee surgery - REMOVAL OF TONSILS,<12 Y/O - THYROIDECTOMY 1996 - TOTAL KNEE REPLACEMENT Bilateral 03/2014 Knee replacement, total ALLERGIES Neomycin; Peanuts; Quinine MEDICATIONS Mqduiqqhtab-Rutyjdlck-Hpg C-Mn (GLUCOSAMINE CHONDROITIN MAXSTR) 500-400 mg cap Take 1 capsule by mouth once daily. meloxicam (MOBIC) 7.5 mg tablet Take 1 tablet by mouth twice daily. SYNTHROID 150 mcg tablet Take 1 tablet by mouth once daily. Or as directed. Do not substitute with generic cholecalciferol, Vitamin D3, (VITAMIN D3) 50,000 unit cap capsule Take 1 capsule by mouth once each week. VIT A,C AND E/B3/B2/LUT/MIN/GLUT (EYE-NIK ORAL) Take by mouth once daily. MULTI-VITAMIN ORAL Take by mouth once daily. SYNTHROID 137 mcg tablet Take 1 tablet by mouth as directed. To replace 150 mcg dose one or two days weekly as directed based on labs Magnesium 200 mg tab Take by mouth. Takes (1) 125 mg per week for leg cramps as needed (3 [id number]) methylPREDNISolone (MEDROL DOSE-PACK) 4 mg Dose-Pack Take medications as directed on packaging. Take with food. DIPHENHYDRAMINE HCL (ANTIHISTAMINE ALLERGY ORAL) Take by mouth once daily. albuterol HFA (VENTOLIN HFA) 90 mcg/actuation inhaler Inhale 2 Puffs as instructed every 4 hours as needed for Wheezing/Shortness of Breath. ondansetron orally disintegrating (ZOFRAN ODT) 4 mg disintegrating tablet Take 1 tablet by mouth every 6 hours as needed for Nausea/Vomiting. CALCIUM CARBONATE/VITAMIN D3 (CALCIUM + D ORAL) Take by mouth three times daily. FAMILY HISTORY Problem Relation Age of Onset - Pancreatic cancer [OTHER] Mother - Heart Father [place] 59 [place] THYROID DYSFUNCTION, DM (smoker and overweight) - Colon Cancer Maternal Aunt - Heart Brother CABG AT AGE 50 (nonsmoker; not overweight) - essential tremor [OTHER] Brother Social History Substance Use Topics - Smoking status: Never Smoker - Smokeless tobacco: Never Used - Alcohol use Yes Comment: occasional PHYSICAL EXAM BP 129/90 Pulse 88 Temp 37.7 ?C (99.9 ?F) (Temporal Artery) Resp (!) 96 General Appearance: well appearing, in no acute distress, alert Lungs: Lungs clear to auscultation. No wheezing, rhonchi, rales Heart: RRR without murmur, gallop, or rubs. No ectopy Ext: no edema in LE bilaterally, good distal pulses ASSESSMENT/PLAN: 1. Elevated blood-pressure reading, without diagnosis of hypertension - ICD9: 796.2, ICD10: R03.0 Likely PreHypertension - Encouraged dietary sodium restriction,plenty fruits, vegetables, lean meats and healthy fats/oils. Avoid processed foods, trans fats, vegetable oils and simple sugars. Watch portion sizes. - Recommended regular aerobic exercise. - Recommend home blood pressure monitoring, to bring results in on next visit - Discussed need and benefit for weight loss. - Recheck in 3 months as scheduled, sooner if consistent home BP readings 140/90 or higher Prescription instructions reviewed with patient as applicable. Potential red flag symptoms discussed with the patient. Reviewed appropriate action plan to take if red flag symptoms occur. Patient agreeable to treatment plan Sharmila Constantino APRN.HOLLI CNOV Observed: 07/04/2017 Status: COMPLETED Source: [place] 2:40 PM [facility] REPOSITORY Office Visit (INTMWS) JOANIE MCKEON ([id number]) 1950 F Date Time Provider Department 07/04/17 2:40 PM SHARMILA CONSTANTINO (HOLLI) INTMWS During your visit today, we recorded the following information about you: Temperature Pulse Respiration Blood pressure 99.9 degrees 88/minute 96/minute 129/90 Sharmila SAM Constantino 07/05/2017 9:44 AM Signed CC Patient presents with: Established Patient: elevated blood pressure with headaches occuring daily x 3 weeks HPI Joanie Mckeon is a 66 year old female who presents to the office for blood pressure. Her visit today is for evaluation. Had a few home blood pressure readings that were high, no history of hypertension. Last night BP was 180/90 but average BP's at home have been in the 120's over 80's range. Symptoms referable to elevated blood pressure (headache, chest pain, palpitations, dyspnea, peripheral edema, fatigue, blurred vision): Reports headache. She attributes this to chronic neck pain and sinus symptoms. Last 4 Encounter BP Readings: Date: BP: 07/04/2017 129/90 04/04/2017 136/78 09/13/2016 154/78 04/11/2016 139/83 Exercise: denies regular aerobic exercise. Diet: Watches diet for salt (salty snacks, added salt, processed frozen/canned foods), sugary/sweet snacks, unhealthy fats: No Caffeine: rarely Water intake: a lot Alcohol intake: No Smoker: No Frequent NSAID use: Yes takes meloxicam 7.5 mh daily Decongestants: No Thyroid disorders? Thyroidectomy due to cancer. Taking Levothyroxine. REVIEW OF SYSTEMS See HPI PAST MEDICAL HISTORY Diagnosis Date - Internal hemorrhoids without mention of complication - Obesity, unspecified - Other and unspecified hyperlipidemia - Personal history of malignant neoplasm of thyroid - Postsurgical hypothyroidism 07/16/2007 - Vertigo 02/15/2005 - VITAMIN D DEFICIENCY NOS 09/04/2008 PAST SURGICAL HISTORY Procedure Laterality Date - BONE MARROW ASPIRATE ANDamp; BIOPSY 1999 - COLONOSCOP W/ OR W/O [facility] SPEC 10/21/07 - PAST SURGICAL HISTORY OF ~2004 arthroscopic knee surgery - REMOVAL OF TONSILS,ANDlt;12 Y/O - THYROIDECTOMY 1996 - TOTAL KNEE REPLACEMENT Bilateral 03/2014 Knee replacement, total ALLERGIES Neomycin; Peanuts; Quinine MEDICATIONS Alencbtpwwp-Syibpbtgt-Wwd C-Mn (GLUCOSAMINE CHONDROITIN MAXSTR) 500-400 mg cap Take 1 capsule by mouth once daily. meloxicam (MOBIC) 7.5 mg tablet Take 1 tablet by mouth twice daily. SYNTHROID 150 mcg tablet Take 1 tablet by mouth once daily. Or as directed. Do not substitute with generic cholecalciferol, Vitamin D3, (VITAMIN D3) 50,000 unit cap capsule Take 1 capsule by mouth once each week. VIT A,C ANDamp; E/B3/B2/LUT/MIN/GLUT (EYE-NIK ORAL) Take by mouth once daily. MULTI-VITAMIN ORAL Take by mouth once daily. SYNTHROID 137 mcg tablet Take 1 tablet by mouth as directed. To replace 150 mcg dose one or two days weekly as directed based on labs Magnesium 200 mg tab Take by mouth. Takes (1) 125 mg per week for leg cramps as needed (3 [id number]) methylPREDNISolone (MEDROL DOSE-PACK) 4 mg Dose-Pack Take medications as directed on packaging. Take with food. DIPHENHYDRAMINE HCL (ANTIHISTAMINE ALLERGY ORAL) Take by mouth once daily. albuterol HFA (VENTOLIN HFA) 90 mcg/actuation inhaler Inhale 2 Puffs as instructed every 4 hours as needed for Wheezing/Shortness of Breath. ondansetron orally disintegrating (ZOFRAN ODT) 4 mg disintegrating tablet Take 1 tablet by mouth every 6 hours as needed for Nausea/Vomiting. CALCIUM CARBONATE/VITAMIN D3 (CALCIUM + D ORAL) Take by mouth three times daily. FAMILY HISTORY Problem Relation Age of Onset - Pancreatic cancer [OTHER] Mother - Heart [place] 59 [place]ROID DYSFUNCTION, DM (smoker and overweight) - Colon Cancer Maternal Aunt - Heart Brother CABG AT AGE 50 (nonsmoker; not overweight) - essential tremor [OTHER] Brother Social History Substance Use Topics - Smoking status: Never Smoker - Smokeless tobacco: Never Used - Alcohol use Yes Comment: occasional PHYSICAL EXAM BP 129/90 Pulse 88 Temp 37.7 ?C (99.9 ?F) (Temporal Artery) Resp (!) 96 General Appearance: well appearing, in no acute distress, alert Lungs: Lungs clear to auscultation. No wheezing, rhonchi, rales Heart: RRR without murmur, gallop, or rubs. No ectopy Ext: no edema in LE bilaterally, good distal pulses ASSESSMENT/PLAN: 1. Elevated blood-pressure reading, without diagnosis of hypertension - ICD9: 796.2, ICD10: R03.0 Likely PreHypertension - Encouraged dietary sodium restriction,plenty fruits, vegetables, lean meats and healthy fats/oils. Avoid processed foods, trans fats, vegetable oils and simple sugars. Watch portion sizes. - Recommended regular aerobic exercise. - Recommend home blood pressure monitoring, to bring results in on next visit - Discussed need and benefit for weight loss. - Recheck in 3 months as scheduled, sooner if consistent home BP readings 140/90 or higher Prescription instructions reviewed with patient as applicable. Potential red flag symptoms discussed with the patient. Reviewed appropriate action plan to take if red flag symptoms occur. Patient agreeable to treatment plan SAM Neff APRN.CNP 07/04/2017 3:15 PM Signed Call office if blood pressure consistently 140/90 or higher Referring Provider: SELF [200] Allergies As of Date: 07/04/2017 Noted Allergy Reaction NEOMYCIN 05/18/2014 2 - Rash Comments: Internal Neomycin From knee surgery implant PEANUTS 02/15/2005 QUININE 07/03/2007 Date Reviewed: 07/04/2017 Reviewed by: Marimar Julio Audio Visual Design Engineer - Fully Assessed Reason for Visit: Established Patient [175] Cmt: elevated blood pressure with headaches occuring daily x 3 weeks Primary Visit Diagnosis:Elevated blood-pressure reading, without diagnosis of hypertension [R03.0] Prescriptions as of 07/04/2017 Sig: [id number] C-M* Take 1 capsule by mouth once * MELOXICAM 7.5 MG TABLET Take 1 tablet by mouth twice * SYNTHROID 150 MCG TABLET Take 1 tablet by mouth once d* CHOLECALCIFEROL (VITAMIN D3) * Take 1 capsule by mouth once * EYE-NIK ORAL Take by mouth once daily. MULTI-VITAMIN ORAL Take by mouth once daily. SYNTHROID 137 MCG TABLET Take 1 tablet by mouth as dir* MAGNESIUM 200 MG TABLET Take by mouth. Takes (1) 125* METHYLPREDNISOLONE 4 MG TABLE* Take medications as directed * ANTIHISTAMINE ALLERGY ORAL Take by mouth once daily. ALBUTEROL SULFATE HFA 90 MCG/* Inhale 2 Puffs as instructed * ONDANSETRON 4 MG DISINTEGRATI* Take 1 tablet by mouth every * CALCIUM + D ORAL Take by mouth three times da* Problem List As Of Date 07/04/2017 Noted Resolved Vertigo [R42] INVALID FOR* POSTSURGICAL HYPOTHYROID [E89.0] INVALID FOR* Hyperlipidemia [E78.5] INVALID FOR* PERS HX OF THYROID MALIGNANCY [Z85.850] VITAMIN D DEFICIENCY NOS [E55.9] INVALID FOR* Obesity, Class III, BMI 40-49.9 (morbid obesity* Other instructions from your clinician: Call office if blood pressure consistently 140/90 or higher Encounter Status:Closed by SHARMILA CONSTANTINO CNP on 07/05/17 PROGRESS Observed: 04/04/2017 Status: COMPLETED Source: [place] 9:10 AM [facility] REPOSITORY HNO ID: [id number] Author: Russell Shell Service: (none) Author Type: Physician Type: Progress Notes Filed: 04/17/2017 11:05 PM Note Text: Patient presents with: 6 mo f/up SUBJECTIVE: Joanie Mckeon is a 66 year old year old lady here today for 6 month follow up appointment for review of medical conditions. Pain in neck between neck and shoulder area. 3 months duration. Had massage--feels better for a day. BP at home usually low. 120's usually at home. Clinically euthyroid. PAST MEDICAL HISTORY Diagnosis Date - Internal hemorrhoids without mention of complication - Obesity, unspecified - Other and unspecified hyperlipidemia - Personal history of malignant neoplasm of thyroid - Postsurgical hypothyroidism 07/16/2007 - Vertigo 02/15/2005 - VITAMIN D DEFICIENCY NOS 09/04/2008 Current Outpatient Prescriptions: SYNTHROID 137 mcg tablet Take 1 tablet by mouth as directed. To replace 150 mcg dose one or two days weekly as directed based on labs meloxicam (MOBIC) 7.5 mg tablet Take 1 tablet by mouth twice daily. SYNTHROID 150 mcg tablet Take 1 tablet by mouth once daily. Or as directed. Do not substitute with generic Magnesium 200 mg tab Take by mouth. Takes (1) 125 mg per week for leg cramps as needed (3 [id number]) methylPREDNISolone (MEDROL DOSE-PACK) 4 mg Dose-Pack Take medications as directed on packaging. Take with food. cholecalciferol, Vitamin D3, (VITAMIN D3) 50,000 unit cap capsule Take 1 capsule by mouth once each week. DIPHENHYDRAMINE HCL (ANTIHISTAMINE ALLERGY ORAL) Take by mouth once daily. albuterol HFA (VENTOLIN HFA) 90 mcg/actuation inhaler Inhale 2 Puffs as instructed every 4 hours as needed for Wheezing/Shortness of Breath. ondansetron orally disintegrating (ZOFRAN ODT) 4 mg disintegrating tablet Take 1 tablet by mouth every 6 hours as needed for Nausea/Vomiting. VIT A,C AND E/B3/B2/LUT/MIN/GLUT (EYE-NIK ORAL) Take by mouth once daily. MULTI-VITAMIN ORAL Take by mouth once daily. CALCIUM CARBONATE/VITAMIN D3 (CALCIUM + D ORAL) Take by mouth three times daily. No current facility-administered medications for this visit. OBJECTIVE: BP 152/80 (BP Site: Right Arm, BP Position: Sitting, BP Cuff Size: Large Adult) Pulse 80 Resp 12 Wt 122.5 kg (270 lb) BMI 45.63 kg/m2 Patient is alert, oriented times 3, no apparent distress, affect is bright, reactive. Last 5 Encounter BP Readings: Date: BP: 04/04/2017 152/80 09/13/2016 154/78 04/11/2016 139/83 03/07/2016 138/78 10/27/2015 132/84 Last 5 Encounter Wt Readings: Date: Wt: 04/04/2017 122.5 kg (270 lb) 09/13/2016 124.3 kg (274 lb) 04/11/2016 122.5 kg (270 lb) 03/07/2016 121.1 kg (267 lb) 10/27/2015 121.1 kg (267 lb) 04/04/17 0911 04/04/17 0944 BP: 152/80 136/78 BP Site: Right Arm BP Position: Sitting BP Cuff Size: Large Adult Pulse: 80 Resp: 12 Weight: 122.5 kg (270 lb) Right trapezius area--tight muscle noted Heart: Regular rate, rhythm, no murmurs, gallops, rubs. Lungs: Clear to auscultation, bilaterally, breathing non labored. Ext: No cyanosis, clubbing, or edema. No resting tremor Component Latest Ref Rng AND Units 03/07/2016 09/07/2016 03/28/2017 Protein, Total 6.3 - 8.0 g/dL 6.7 7.5 Albumin 3.9 - 4.9 g/dL 3.8 (L) 4.1 Calcium 8.5 - 10.2 mg/dL 9.4 9.5 Bilirubin, Total 0.2 - 1.3 mg/dL 0.5 0.6 Alkaline Phosphatase 32 - 117 U/L 111 123 (H) AST 13 - 35 U/L 70 (H) 68 (H) Glucose 74 - 99 mg/dL 98 98 BUN 7 - 21 mg/dL 15 14 Creatinine 0.58 - 0.96 mg/dL 0.78 0.80 Sodium 136 - 144 mmol/L 144 142 Potassium 3.7 - 5.1 mmol/L 4.3 4.3 Chloride 97 - 105 mmol/L 106 (H) 102 CO2 22 - 30 mmol/L 23 27 Anion Gap 9 - 18 mmol/L 15 13 ALT 7 - 38 U/L 68 (H) 69 (H) eGFR- >60 >60 eGFR-All Other Races . >60 >60 WBC 3.70 - 11.00 k/uL 5.53 RBC 3.90 - 5.20 m/uL 5.14 Hemoglobin 11.5 - 15.5 g/dL 14.8 Hematocrit 36.0 - 46.0 % 45.6 MCV 80.0 - 100.0 fL 88.7 MCH 26.0 - 34.0 pG 28.8 MCHC 30.5 - 36.0 g/dL 32.5 RDW-CV 11.5 - 15.0 % 13.6 Platelet Count 150 - 400 k/uL 196 MPV 9.0 - 12.7 fL 9.9 Triglyceride 30 - 149 mg/dL 126 123 Cholesterol 100 - 199 mg/dL 207 (H) 230 (H) HDL Cholesterol >55 mg/dL 55 (L) 59 VLDL Cholesterol 6 - 40 mg/dL 25 25 LDL Cholesterol 60 - 129 mg/dL 127 146 (H) Fasting Time hrs 10 12 TC:HDL Ratio 1.00 - 5.00 3.76 3.90 LDL:HDL Ratio 0.50 - 3.55 2.31 2.47 Non HDL Cholesterol 90 - 159 mg/dL 152 171 (H) KASSANDRA Negative Negative KASSANDRA Titer Negative Negative KASSANDRA Pattern Not applicable for negative result. Thyroglobulin 1.6 - 59.9 ng/mL <0.2 (L) <0.2 (L) TG Antibody Screen <14.4 IU/mL 1.8 1.5 TSH 0.400 - 5.500 uU/mL 3.230 3.020 4.200 Free T4 0.9 - 1.7 ng/dL 1.2 1.2 1.1 Free T3 2.3 - 4.1 pg/mL 2.6 Vitamin D 25 Hydroxy 31.0 - 80.0 ng/mL 59.5 53.7 WSR 0 - 20 mm/hr 10 CRP <0.9 mg/dL 0.8 Rheumatoid Factor <16 IU/mL <10 Magnesium 1.7 - 2.3 mg/dL 2.0 2.3 ASSESSMENT AND PLAN: Encounter Diagnosis ICD-10-CM 1. Postsurgical hypothyroidism E89.0 TSH BLD T4 FREE/FREE THYROX 2. Mixed hyperlipidemia E78.2 3. Class 3 obesity without serious comorbidity in adult, unspecified BMI, unspecified obesity type E66.9 4. Screening for breast cancer Z12.31 CHER SCREENING Above issues addressed with patient. Patient involved in shared decision making for management of her medical issues. History and medications reviewed. Epic updated as needed Refills taken care of and meds adjusted as indicated after reviewed history, exam and labs. Health Maintenance reviewed. Updated record and/or ordered tests as recorded. Encouraged on efforts at healthy diet and regular exercise and adequate sleep. Needs to keep working on diet and exercise with lifestyle changes for effective weight loss, control of lipids and prevention of DM.. The majority of the visit was spent counseling and/or coordinating care for the patient. Iuuo-pv-iqsj time was at least 25 minutes. Russell Shell MD CNOV Observed: 04/04/2017 Status: COMPLETED Source: [place] 8:40 AM [facility] REPOSITORY Office Visit (INTMWS) JOANIE MCKEON ([id number]) 1950 F Date Time Provider Department 04/04/17 8:40 AM RUSSELL SHELL During your visit today, we recorded the following information about you: Pulse Respiration Blood pressure Weight 80/minute 12/minute 136/78 122.5 kg Russell Shell MD 04/17/2017 11:05 PM Signed Patient presents with: 6 mo f/up SUBJECTIVE: Joanie Mckeon is a 66 year old year old lady here today for 6 month follow up appointment for review of medical conditions. Pain in neck between neck and shoulder area. 3 months duration. Had massage--feels better for a day. BP at home usually low. 120's usually at home. Clinically euthyroid. PAST MEDICAL HISTORY Diagnosis Date - Internal hemorrhoids without mention of complication - Obesity, unspecified - Other and unspecified hyperlipidemia - Personal history of malignant neoplasm of thyroid - Postsurgical hypothyroidism 07/16/2007 - Vertigo 02/15/2005 - VITAMIN D DEFICIENCY NOS 09/04/2008 Current Outpatient Prescriptions: SYNTHROID 137 mcg tablet Take 1 tablet by mouth as directed. To replace 150 mcg dose one or two days weekly as directed based on labs meloxicam (MOBIC) 7.5 mg tablet Take 1 tablet by mouth twice daily. SYNTHROID 150 mcg tablet Take 1 tablet by mouth once daily. Or as directed. Do not substitute with generic Magnesium 200 mg tab Take by mouth. Takes (1) 125 mg per week for leg cramps as needed (3 [id number]) methylPREDNISolone (MEDROL DOSE-PACK) 4 mg Dose-Pack Take medications as directed on packaging. Take with food. cholecalciferol, Vitamin D3, (VITAMIN D3) 50,000 unit cap capsule Take 1 capsule by mouth once each week. DIPHENHYDRAMINE HCL (ANTIHISTAMINE ALLERGY ORAL) Take by mouth once daily. albuterol HFA (VENTOLIN HFA) 90 mcg/actuation inhaler Inhale 2 Puffs as instructed every 4 hours as needed for Wheezing/Shortness of Breath. ondansetron orally disintegrating (ZOFRAN ODT) 4 mg disintegrating tablet Take 1 tablet by mouth every 6 hours as needed for Nausea/Vomiting. VIT A,C ANDamp; E/B3/B2/LUT/MIN/GLUT (EYE-NIK ORAL) Take by mouth once daily. MULTI-VITAMIN ORAL Take by mouth once daily. CALCIUM CARBONATE/VITAMIN D3 (CALCIUM + D ORAL) Take by mouth three times daily. No current facility-administered medications for this visit. OBJECTIVE: BP 152/80 (BP Site: Right Arm, BP Position: Sitting, BP Cuff Size: Large Adult) Pulse 80 Resp 12 Wt 122.5 kg (270 lb) BMI 45.63 kg/m2 Patient is alert, oriented times 3, no apparent distress, affect is bright, reactive. Last 5 Encounter BP Readings: Date: BP: 04/04/2017 152/80 09/13/2016 154/78 04/11/2016 139/83 03/07/2016 138/78 10/27/2015 132/84 Last 5 Encounter Wt Readings: Date: Wt: 04/04/2017 122.5 kg (270 lb) 09/13/2016 124.3 kg (274 lb) 04/11/2016 122.5 kg (270 lb) 03/07/2016 121.1 kg (267 lb) 10/27/2015 121.1 kg (267 lb) 04/04/17 0911 04/04/17 0944 BP: 152/80 136/78 BP Site: Right Arm BP Position: Sitting BP Cuff Size: Large Adult Pulse: 80 Resp: 12 Weight: 122.5 kg (270 lb) Right trapezius area--tight muscle noted Heart: Regular rate, rhythm, no murmurs, gallops, rubs. Lungs: Clear to auscultation, bilaterally, breathing non labored. Ext: No cyanosis, clubbing, or edema. No resting tremor Component Latest Ref Rng ANDamp; Units 03/07/2016 09/07/2016 03/28/2017 Protein, Total 6.3 - 8.0 g/dL 6.7 7.5 Albumin 3.9 - 4.9 g/dL 3.8 (L) 4.1 Calcium 8.5 - 10.2 mg/dL 9.4 9.5 Bilirubin, Total 0.2 - 1.3 mg/dL 0.5 0.6 Alkaline Phosphatase 32 - 117 U/L 111 123 (H) AST 13 - 35 U/L 70 (H) 68 (H) Glucose 74 - 99 mg/dL 98 98 BUN 7 - 21 mg/dL 15 14 Creatinine 0.58 - 0.96 mg/dL 0.78 0.80 Sodium 136 - 144 mmol/L 144 142 Potassium 3.7 - 5.1 mmol/L 4.3 4.3 Chloride 97 - 105 mmol/L 106 (H) 102 CO2 22 - 30 mmol/L 23 27 Anion Gap 9 - 18 mmol/L 15 13 ALT 7 - 38 U/L 68 (H) 69 (H) eGFR- ANDgt;60 ANDgt;60 eGFR-All Other Races . ANDgt;60 ANDgt;60 WBC 3.70 - 11.00 k/uL 5.53 RBC 3.90 - 5.20 m/uL 5.14 Hemoglobin 11.5 - 15.5 g/dL 14.8 Hematocrit 36.0 - 46.0 % 45.6 MCV 80.0 - 100.0 fL 88.7 MCH 26.0 - 34.0 pG 28.8 MCHC 30.5 - 36.0 g/dL 32.5 RDW-CV 11.5 - 15.0 % 13.6 Platelet Count 150 - 400 k/uL 196 MPV 9.0 - 12.7 fL 9.9 Triglyceride 30 - 149 mg/dL 126 123 Cholesterol 100 - 199 mg/dL 207 (H) 230 (H) HDL Cholesterol ANDgt;55 mg/dL 55 (L) 59 VLDL Cholesterol 6 - 40 mg/dL 25 25 LDL Cholesterol 60 - 129 mg/dL 127 146 (H) Fasting Time hrs 10 12 TC:HDL Ratio 1.00 - 5.00 3.76 3.90 LDL:HDL Ratio 0.50 - 3.55 2.31 2.47 Non HDL Cholesterol 90 - 159 mg/dL 152 171 (H) KASSANDRA Negative Negative KASSANDRA Titer Negative Negative KASSANDRA Pattern Not applicable for negative result. Thyroglobulin 1.6 - 59.9 ng/mL ANDlt;0.2 (L) ANDlt;0.2 (L) TG Antibody Screen ANDlt;14.4 IU/mL 1.8 1.5 TSH 0.400 - 5.500 uU/mL 3.230 3.020 4.200 Free T4 0.9 - 1.7 ng/dL 1.2 1.2 1.1 Free T3 2.3 - 4.1 pg/mL 2.6 Vitamin D 25 Hydroxy 31.0 - 80.0 ng/mL 59.5 53.7 WSR 0 - 20 mm/hr 10 CRP ANDlt;0.9 mg/dL 0.8 Rheumatoid Factor ANDlt;16 IU/mL ANDlt;10 Magnesium 1.7 - 2.3 mg/dL 2.0 2.3 ASSESSMENT AND PLAN: Encounter Diagnosis ICD-10-CM 1. Postsurgical hypothyroidism E89.0 TSH BLD T4 FREE/FREE THYROX 2. Mixed hyperlipidemia E78.2 3. Class 3 obesity without serious comorbidity in adult, unspecified BMI, unspecified obesity type E66.9 4. Screening for breast cancer Z12.31 CHER SCREENING Above issues addressed with patient. Patient involved in shared decision making for management of her medical issues. History and medications reviewed. Epic updated as needed Refills taken care of and meds adjusted as indicated after reviewed history, exam and labs. Health Maintenance reviewed. Updated record and/or ordered tests as recorded. Encouraged on efforts at healthy diet and regular exercise and adequate sleep. Needs to keep working on diet and exercise with lifestyle changes for effective weight loss, control of lipids and prevention of DM.. The majority of the visit was spent counseling and/or coordinating care for the patient. Jcqu-dr-vzza time was at least 25 minutes. MD Russell Rivas MD 04/04/2017 9:58 AM Addendum 5 Year Risk of Developing Breast Cancer ? This woman (age 66): 1.5% ? Average woman (age 66): 2.1% Explanation Based on the information provided (see below), the woman's estimated risk for developing invasive breast cancer over the next 5 years is 1.5% compared to a risk of 2.1% for a woman of the same age and race/ethnicity from the general [place] population. This calculation also means that the woman's risk of NOT getting breast cancer over the next 5 years is 98.5%. Lifetime Risk of Developing Breast Cancer ? This woman (to age 90): 5.4% ? Average woman (to age 90): 7.5% Explanation Based on the information provided (see below), the woman's estimated risk for developing invasive breast cancer over her lifetime (to age 90) is 5.4% compared to a risk of 7.5% for a woman of the same age and race/ethnicity from the general [place] population. Okay to increase thyroid dose to 150 mcg daily Referring Provider: SELF [200] Allergies As of Date: 04/04/2017 Noted Allergy Reaction NEOMYCIN 05/18/2014 2 - Rash Comments: Internal Neomycin From knee surgery implant PEANUTS 02/15/2005 QUININE 07/03/2007 Date Reviewed: 04/04/2017 Reviewed by: Brent Dash - Fully Assessed Reason for Visit: 6 mo f/up [Other] Primary Visit Diagnosis:Postsurgical hypothyroidism [E89.0] Other Visit Diagnoses:Mixed hyperlipidemia [E78.2] Class 3 obesity without serious comorbidity in adult, unspecified BMI, unspecified obesity type [E66.9] Screening for breast cancer [Z12.31] Order(s):CHER SCREENING [4410535] Order #: [id number] FUTURE TSH BLD [SQTSH] Order #: [id number] STANDING T4 FREE/FREE THYROX [SQFT4] Order #: [id number] STANDING Prescriptions as of 04/04/2017 Sig: SYNTHROID 137 MCG TABLET Take 1 tablet by mouth as dir* MELOXICAM 7.5 MG TABLET Take 1 tablet by mouth twice * SYNTHROID 150 MCG TABLET Take 1 tablet by mouth once d* MAGNESIUM 200 MG TABLET Take by mouth. Takes (1) 125* METHYLPREDNISOLONE 4 MG TABLE* Take medications as directed * CHOLECALCIFEROL (VITAMIN D3) * Take 1 capsule by mouth once * ANTIHISTAMINE ALLERGY ORAL Take by mouth once daily. ALBUTEROL SULFATE HFA 90 MCG/* Inhale 2 Puffs as instructed * ONDANSETRON 4 MG DISINTEGRATI* Take 1 tablet by mouth every * EYE-NIK ORAL Take by mouth once daily. MULTI-VITAMIN ORAL Take by mouth once daily. CALCIUM + D ORAL Take by mouth three times da* Medication notes this encounter MELOXICAM 7.5 MG TABLET >> Brent Dash 04/04/2017 9:07 AM >> BRENT DASH SunApr 04, 2017 9:07 AM Takes once a day. METHYLPREDNISOLONE 4 MG TABLETS IN A DOSE PACK >> Brent Dash 04/04/2017 9:07 AM >> BRENT DASH Apr 04, 2017 9:07 AM Finished. ALBUTEROL SULFATE HFA 90 MCG/ACTUATION AEROSOL INHALER >> Brent Dash 04/04/2017 9:08 AM >> BRENT DASH SunApr 04, 2017 9:08 AM Did not work well. Problem List As Of Date 04/04/2017 Noted Resolved Vertigo [R42] INVALID FOR* POSTSURGICAL HYPOTHYROID [E89.0] INVALID FOR* Hyperlipidemia [E78.5] INVALID FOR* PERS HX OF THYROID MALIGNANCY [Z85.850] VITAMIN D DEFICIENCY NOS [E55.9] INVALID FOR* Obesity, unspecified [E66.9] Other instructions from your clinician: 5 Year Risk of Developing Breast Cancer ? This woman (age 66): 1.5% ? Average woman (age 66): 2.1% Explanation Based on the information provided (see below), the woman's estimated risk for developing invasive breast cancer over the next 5 years is 1.5% compared to a risk of 2.1% for a woman of the same age and race/ethnicity from the general [place] population. This calculation also means that the woman's risk of NOT getting breast cancer over the next 5 years is 98.5%. Lifetime Risk of Developing Breast Cancer ? This woman (to age 90): 5.4% ? Average woman (to age 90): 7.5% Explanation Based on the information provided (see below), the woman's estimated risk for developing invasive breast cancer over her lifetime (to age 90) is 5.4% compared to a risk of 7.5% for a woman of the same age and race/ethnicity from the general [place] population. Okay to increase thyroid dose to 150 mcg daily Disposition: Return in about 6 months (around 10/02/2017) for Yearly exam and follow up (40 min). Follow-up and Disposition History Recorded Encounter Status:Closed by RUSSELL SHELL MD on 04/17/17 COMP METABOLIC PANEL Collected: 03/28/2017 Status: F Source: [place] 10:25 AM [facility] REPOSITORY TYPE CODE TESTS RESULT OUT OF REFERENCE UNITS RANGE LAB TP 6.3-8.0 g/dL Protein, Total 7.5 LAB ALB 3.9-4.9 g/dL Albumin 4.1 LAB CA 8.5-10.2 mg/dL Calcium, Total 9.5 LAB TBIL 0.2-1.3 mg/dL Bilirubin, Total 0.6 LAB ALKP 32-117 U/L Alkaline High Phosphatase 123 LAB AST 13-35 U/L AST High 68 LAB GLU 74-99 mg/dL Glucose 98 Result Comment: The [place] [employer] (ADA) provides guidance for cutoff values for fasting glucose and random glucose. The ADA defines fasting as no caloric intake for at least 8 hours. Fas ting plasma glucose results between 100 to 125 mg/dL indicate increased risk for diabetes (prediabetes). Fasting plasma glucose results greater than or equal to 126 mg/dL meet the criteria for diagnosis of diabetes. In the absence of unequivocal hyperglycemia, results should be confirmed by repeat testing. In a patient with classic symptoms of hyperglycemia or hyperglycemic crisis, random plasma glucose results greater than or equal to 200 mg/dL meet the criteria for diagnosis of diabetes. Reference: Standards of Medical Care in Diabetes 2016, [place] [employer]. Diabetes Care. 2016.39(Suppl 1). LAB BUN 7-21 mg/dL BUN 14 LAB CRET 0.58-0.96 mg/dL Creatinine 0.80 LAB NA 136-144 mmol/L Sodium 142 LAB K 3.7-5.1 mmol/L Potassium 4.3 LAB CL 97-105 mmol/L Chloride 102 LAB CO2 22-30 mmol/L CO2 27 LAB AGAP 9-18 mmol/L Anion Gap 13 LAB ALT 7-38 U/L ALT High 69 LAB GFRAA eGFR- Amer. >60 LAB GFRNAA . eGFR-All Other Races >60 Result Comment: eGFR (Estimated GFR) Units of measure: mL/min/1.73 meters squared eGFR is derived from the reexpressed MDRD Study equation using the following parameters: serum creatinine, age, gender and race. The creatinine assay has been calibrated to be traceable to IDMS. An eGFR <60 mL/min/1.73m2 for >3 months is consistent with chronic kidney disease. Refer to KDOQI guidelines for clinical interpretation. In patients with unstable renal function, e.g. those with acute kidney injury, the eGFR may not accurately reflect actual GFR. Performed By: #### CMP, LIPB, MG1, TSH, FT4, VITD, TG #### [facility] [address] [place] [id number] LIPID PANEL, BASIC Collected: 03/28/2017 Status: F Source: [place] 10:25 AM [facility] REPOSITORY TYPE CODE TESTS RESULT OUT OF REFERENCE UNITS RANGE LAB TRIGLY 30-149 mg/dL Triglyceride 123 LAB CHOL 100-199 mg/dL Cholesterol High 230 LAB HDL >55 mg/dL HDL-Cholesterol 59 LAB VLDL 6-40 mg/dL VLDL Cholesterol 25 LAB LDL 60-129 mg/dL High LDL-Cholesterol 146 LAB FT hrs Fasting Time 12 LAB TCHDL 1.00-5.00 TC:HDL Ratio 3.90 LAB LDLHDL 0.50-3.55 LDL:HDL Ratio 2.47 LAB NONHDL 90-159 mg/dL Non HDL High Cholesterol 171 Performed By: #### CMP, LIPB, MG1, TSH, FT4, VITD, TG #### [place] [address] [place] [address] MAGNESIUM Collected: 03/28/2017 Status: F Source: [place] 10:25 AM [facility] REPOSITORY TYPE CODE TESTS RESULT OUT OF REFERENCE UNITS RANGE LAB MG 1.7-2.3 mg/dL Magnesium 2.3 Performed By: #### CMP, LIPB, MG1, TSH, FT4, VITD, TG #### [place] [phone] TSH Collected: 03/28/2017 Status: F Source: [place] 10:25 AM [facility] REPOSITORY TYPE CODE TESTS RESULT OUT OF RANGE REFERENCE UNITS LAB TSH 0.400-5.500 uU/mL TSH 4.200 Performed By: #### CMP, LIPB, MG1, TSH, FT4, VITD, TG #### [place] [address] [place] [address] FREE T4 Collected: 03/28/2017 Status: F Source: [place] 10:25 AM [facility] REPOSITORY TYPE CODE TESTS RESULT OUT OF RANGE REFERENCE UNITS LAB FT4 0.9-1.7 ng/dL Free T4 1.1 Performed By: #### CMP, LIPB, MG1, TSH, FT4, VITD, TG #### [place] [phone] VITAMIN D 25 HYDROXY Collected: 03/28/2017 Status: F Source: [place] 10:25 AM [facility] REPOSITORY TYPE CODE TESTS RESULT OUT OF REFERENCE UNITS RANGE LAB VITD 31.0-80.0 ng/mL Vitamin D 25 53.7 Hydroxy Result Comment: Classification of 25 [place] Vitamin D status: Insufficiency/Moderate Deficiency: < or = 30 ng/mL Sufficiency/Optimal Levels: 31 to 80 ng/mL Toxicity: > 100 ng/mL Test performed by chemiluminescent immunoassay. Performed By: #### CMP, LIPB, MG1, TSH, FT4, VITD, TG #### [facility] [employer] [address] [place], [place] [address] THYROGLOBULIN Collected: 03/28/2017 Status: F Source: [place] 10:25 AM [facility] [place] REPOSITORY TYPE CODE TESTS RESULT OUT OF REFERENCE UNITS RANGE LAB THYG 1.6-59.9 ng/mL Thyroglobulin Low <0.2 Result Comment: Test analyzed by the Siemens Immulite method LAB TGABS <14.4 IU/mL TG Antibody Screen 1.5 Performed By: #### CMP, LIPB, MG1, TSH, FT4, VITD, TG #### [facility] [address] [place], [place] [address] ALLERGIES ALLERGIES DATE TYPE / CODE NAME / CODE REACTION SEVERITY SOURCE 02/13/2018 Drug peanut/[id number] Shortness of Unknown [facility] Allergy/416 68(RXNORM) [facility] [id number](SNOM Repository ED CT) 02/13/2018 Drug neomycin/[id number] Rash Unknown [facility] Allergy/416 2775(RXNORM) [facility] 185098(SNOM Repository ED CT) 02/13/2018 Drug quinine/[id number] Other Unknown [place] [facility] Allergy/416 934(RXNORM) [facility] 272170(SNOM Repository ED CT) 05/18/2014 DRUG NEOMYCIN RASH [facility] INGREDI/419 [facility] 193816(SNOM Repository ED CT) 07/03/2007 DRUG QUININE [facility] INGREDI/419 [facility] 457289(SNOM Repository ED CT) 02/15/2005 Food/304375 PEANUTS [facility] 000(SNOMED [facility] [place] [facility]) Repository ENCOUNTERS ENCOUNTERS ADMIT/DISCHARGE ACCOUNT ADMITTING ENCOUNTER LOCATION SOURCE NUMBER CLASS 02/20/2018 [id number] Ambulatory [facility] ing:RAD Repository 02/19/2018/02/20/[id number] ing:ENRoom: Repository AC17 02/19/2018/02/20/20 [id number] Ambulatory BMSBuilding:B [place] [facility] [place] Repository 12/28/2017/12/29/19 [id number] Ambulatory BMSBuilding:B [place] 18 MS.A [facility] Repository 12/12/2017/12/13/19 [id number] Ambulatory [address] Repository 10/17/2017/10/18/19 [id number] Ambulatory [address] Repository 10/17/2017/11/01/19 [id number] Ambulatory [address] Repository 10/10/2017/10/11/19 [id number] Ambulatory [address] Repository 07/04/2017/07/07/19 [id number] Ambulatory [address] Repository 04/04/2017/04/04/19 [id number] Ambulatory [address] Repository 03/28/2017 [id number] Ambulatory [facility] Repository PAYERS PAYERS ENCOUNTER GUARANTOR PAYER SUBSCRIBER SOURCE 02/20/2018 JOANIE R Primary JOANIE R Marie [id number] Insurance:MEDICARE MEILINGERDOB: [facility], PART A [id number] [address]874Bzi: Number: Repository [id number] (HP) Date:2018-02-19 02/20/2018 Secondary JOANIE R Marie Insurance:AARolic MEILINGERDOB: [facility] Number: [id number] [facility] [id number] Repository Date:1942-50-30[address], [place] [address]GP: 02/20/2018 Tertiary NOT GIVENUNK Marie Insurance:SELF PAY [facility] Number: Effective Repository Date:2018-02-19 02/19/2018 ADRIAN Kimbrough Primary JOANIE R [place] [id number] Insurance:MEDICARE MEILINGERDOB: [facility], PART A [facility] [id number] 27039Vku: Number: Repository [id number] (HP) Date:2017-12-28 02/19/2018 Secondary JOANIE R [place] Insurance:AARPPolicy MEILINGERDOB: Community Number: [id number] Hospital [id number] Repository Date:0949-35-01[address], [place] [address]VO: 02/19/2018 Tertiary NOT GIVENUNK Marie Insurance:SELF PAY [facility] Number: Effective Repository Date:2017-12-28 02/19/2018 ADRIAN I Primary JOANIE R Marie [id number] Insurance:MEDICARE MEILINGERDOB: [facility] NICK VERDUZCOKENNETHLIN, PART A BPolicy [id number] 15192Ntn: Number: Repository [id number] (HP) Date:2017-12-28 02/19/2018 Secondary JOANIE R Marie Insurance:AARPPolicy MEILINGERDOB: Community Number: [id number] Hospital [id number] Repository Date:[id number] [facility] [address], [place] [address]IO: 02/19/2018 Tertiary NOT GIVENUNK Marie Insurance:SELF PAY [facility] Number: Effective Repository Date:2018-02-19 12/28/2017 ADRIAN I Primary ADRIAN I Marie [id number] Insurance:ABDUL MEILINGERDOB: [facility] [address] RULEPolicy Number: [id number] [address]3633Ipq: [phone] Repository Date: () [facility] 18737BF: 12/28/2017 Secondary NOT GIVENUNK Marie Insurance:SELF PAY [facility] Number: Effective Repository Date:2017-12-28
== END 2018-02-19 11:19 | disposition home or self-care (01) ==
LOC: EN 08:03 → AC 08:06
PROVIDERS: Family Provider Internal Medicine; PCP Internal Medicine; Referring Provider Surgery; Visit Provider Surgery
PROC: 0DJD8ZZ Inspection of Lower Intestinal Tract, Via Natural or Artificial Opening Endoscopic (ICD-10-PCS; CPT 45378; principal; 2018-02-19 08:55)
DX: Z12.11 Encounter for screening for malignant neoplasm of colon (principal); Z53.8 Procedure and treatment not carried out for other reasons; K57.30 Diverticulosis of large intestine without perforation or abscess without bleeding; K59.8 Other specified functional intestinal disorders; Z79.899 Other long term (current) drug therapy
CPT/HCPCS: G0104; 99152; 99153; J7120; J1610

== ENCOUNTER → 2018-02-20 08:42 | Outpatient (CLI) | payer MEDICARE, OTHER, SELFPAY ==
[2018-02-19 08:31] VITALS: BMI 41.8
--- NOTE | 2018-02-20 08:53 | RAD_ITS ---
STUDY: X-RAY - ABDOMEN/PELVIS REASON FOR EXAM: Female, 67 years old. Incomplete colonoscopy. Patient was scheduled for barium enema. TECHNIQUE: Two AP supine views of the abdomen and pelvis. COMPARISON: None. FINDINGS: The patient was scheduled for a barium enema. The patient refused the barium enema due to pain during insertion of the rectal cannula. There is elevation of the right hemidiaphragm. There is an unremarkable bowel gas pattern. The visualized liver, spleen and kidneys are grossly normal in size and morphology. Normal soft tissue structures. There are diffuse degenerative changes of the visualized lumbar spine. RAD/Abdomen Single View IMPRESSION: Unremarkable bowel gas pattern. Electronically Signed: Michael Ruiz MD at 8:58 EST Tel [phone], Service support ,
--- OUTSIDE RECORDS SUMMARY | 2018-04-17 14:03 | XMS RPT_ITS ---
:1950 Author Organization OHIP Care Team Providers Name Role Phone RUSSELL SHELL Attending Unavailable TALAMPAS, RUSSELL D Referring Unavailable TALAMPAS, RUSSELL D Referring Unavailable TALAMPAS, RUSSELL D Referring Unavailable VIRA, SHARMIAL (REFRIGERATION MECHANIC) Attending Unavailable TALAMPAS, RUSSELL D Attending Unavailable TALAMPAS, RUSSELL D Referring Unavailable Nurse, Standard Attending Unavailable Lea Shella Referring Unavailable Rajeev Ayala Attending Unavailable Lazarusampas, Russell Primary Care Unavailable Jamie Rajeev Referring Unavailable Rajeev Ayala Attending Unavailable Rajeev Ayala Referring Unavailable Lazarusampghazala, Russell Primary Care Unavailable Rajeev Ayala Attending Unavailable Rajeev Ayala Referring Unavailable PROBLEMS PROBLEMS DATE TYPE CONDITION / CODE ATTENDING STATUS SOURCE 03/04/2018 Unknown Z12.11 - Encounter Rajeev Ayala for screening for [facility] / Repository Z12.11(ICD-10) 12/12/2017 Active Encounter for NA Active [facility] screening mammogram [facility] for malignant [place] neoplasm of breast / Repository Z12.31(ICD-10) 10/17/2017 Active Vitamin D NA Active [facility] deficiency, Clinic Main unspecified / [place] E55.9(ICD-10) Repository 07/16/2007 Active Postprocedural NA Active [facility] hypothyroidism / Clinic Main E89.0(ICD-10) [place] Repository 10/17/2017 Active Other correction NA Active [facility] (current) drug Clinic [facility] therapy / [place] Z79.899(ICD-10) Repository 10/17/2017 Active Cramp and spasm / NA Active [facility] R25.2(ICD-10) Clinic Main [place] Repository 10/17/2017 Active Other specified NA Active [facility] disorders of muscle Clinic [facility] / M62.89(ICD-10) [place] Repository 10/17/2017 Active Myalgia / NA Active [facility] M79.1(ICD-10) Clinic Main [place] Repository 10/17/2017 Active Mixed hyperlipidemia NA Active [facility] / E78.2(ICD-10) Clinic Main [place] Repository 04/04/2017 Active Unknown / RUSSELL SHELL Active [facility] UNK(Unknown) D Clinic Main [place] Repository 10/04/2007 Active Personal history of NA Active [facility] malignant neoplasm [facility] of thyroid / [place] Z85.850(ICD-10) Repository PROCEDURES PROCEDURES No Procedure Records FoundRESULTS RESULTS ABDOMEN SINGLE VIEW Observed: 02/20/2018 Status: F Source: SCREVEN 8:53 AM [facility] REPOSITORY [facility] Imaging Services [address] [place] [address] Abdomen Single View MR#: [id number] Acct: [id number] Name: JOANIE MCKEON Rep #: [id number] : 1950 F 67 From: Michael Ruiz MD PCP: Russell Shell MD Status: REG CLI Study: Abdomen Single View Date of Exam: 02/20/18 Exam# [id number] Ordering Dr: Rajeev Ayala MD STUDY: X-RAY [...] IMPRESSION: Unremarkable bowel gas pattern. Electronically Signed: Michale Ruiz MD at 8:58 EST Tel [phone], Service support , CC: Russell Shell MD; Rajeev Ayala MD Registered Veterinary Technician: Signed HISTORY AND PHYSICAL Observed: 02/19/2018 Status: F Source: SCREVEN EXAM 4:28 PM [facility] REPOSITORY [facility] Medical Records Department [address] [place] [address] History and Physical 02/19/18920 MR#: [id number] Acct: [id number] Name: JOANIE MCKEON Rep #: [id number] : 1950 67 From: Rajeev Ayala MD PCP: Russell Shell MD Status: [facility] Location: EN Problem List (1) Screening [...] as noted. Rajeev Ayala M.D., F.A.C.S. 02/19/18 9498 <Electronically signed by Rajeev Ayala MD> Date Rajeev Ayala MD Cosigner Signature: Date (if applicable) CC: Russell Shell MD; Rajeev Ayala MD Signed OPERATIVE REPORT - Observed: 02/19/2018 Status: F Source: SCREVEN ENDOSCOPY 9:59 AM [facility] REPOSITORY [facility] Medical Records Department [address] [place] [address] Operative Report - Endoscopy MR#: [id number] Acct: [id number] Name: JOANIE MCKEON Rep #: [id number] : 1950 67 From: Rajeev Ayala MD PCP: Russell Shell MD Status: REG [facility] [place] [place] Patient Name: Joanie Mckeon Procedure Date: 02/19/2018 [...] screening purposes. Procedure Code(s): --- Professional --- 47137, 53, Colonoscopy, flexible; diagnostic, including collection of specimen(s) by brushing or washing, when performed (separate procedure) 14732, 59, Moderate sedation services provided by the same physician or other qualified health care director rn performing the diagnostic or therapeutic service that [...] or abscess without bleeding CPT copyright 2017 [employer] [employer]. All rights reserved. The codes documented in this report are preliminary and upon mh teacher review may be revised to meet current compliance requirements. Rajeev Ayala MD 02/19/2018 9:59:00 AM This report has been signed electronically. Number of Addenda: 0 Note Initiated On: 02/19/2018 9:11 AM 02/19/18 0959 Date Rajeev Ayala MD Cosigner Signature: Date (if indicated) CC: Russell Shell MD; Rajeev Ayala MD Date Dictated: 02/19/18 0911 Date Transcribed: Registered Veterinary Technician: MINAL Signed CNCO Observed: 12/12/2017 Status: COMPLETED Source: STURGEON 10:16 AM [facility] REPOSITORY HNO ID: [id number] Author: Mammography Coordinator Service: (none) Author Type: Physician Type: Letter Filed: 12/13/2017 11:31 PM Note Text: December 12, 2017 PID: [id number] Joanie Mckeon [address] [place] [address] Dear Ms. Mckeon, We are pleased to [...] report will be kept on file at [facility] as part of your permanent medical record and are available for your continuing care. Thank you for allowing us to help in meeting your health care needs. Sincerely, Dr. Slater Interpreting Radiologist [facility] (Normal over 40) [facility] SCREENING Observed: 12/12/2017 Status: F Source: STURGEON 10:09 AM [facility] REPOSITORY * * *Final Report* * * DATE OF EXAM: Dec 12 2017 10:09AM [facility] 0581 - [facility] SCREENING / PROCEDURE REASON: Encounter for screening mammogram for malignant neoplasm of breast * * * * Physician Interpretation * * * * RESULT: #[id number] - [facility] SCREENING BILATERAL DIGITAL SCREENING MAMMOGRAM WITH [...] dated: 01/05/2016 mammogram and 10/07/2014 mammogram - [facility]. The tissue of both breasts is predominantly fatty. No significant masses, calcifications, or other findings are seen in either breast. There has been no significant interval change. IMPRESSION: NEGATIVE There is no mammographic evidence of malignancy. A 1 year screening mammogram is recommended. David woodall/gaudencio:12/12/2017 10:16:53 Planning Division Superintendent: Anastasia Rizvi RT(R)(Yari), [facility] letter sent: Normal over 40 [...] Health, Family Medicine, and Medical/Surgical Oncology, the [facility] has carefully reviewed the data and [...] their providers when to stop screening mammograms. Registered Veterinary Technician: Gaudencio Transcribe Date/Time: Dec 12 2017 10:10A Dictated by: DAVID SLATER MD This examination was interpreted and the report reviewed and electronically signed by: DAVID SLATER MD on Dec 12 2017 10:16AM EST [id number] Collected: 10/17/2017 Status: F Source: STURGEON 10:20 AM [facility]AMPUS REPOSITORY TYPE [...] CMP, LIPB, MG1, FT4, TSH, VITD #### [facility] [employer] [place], [place] [address] SED RATE WESTERGREN Collected: 10/17/2017 Status: F Source: STURGEON 10:20 AM [facility]IN [place] REPOSITORY TYPE CODE TESTS RESULT OUT OF REFERENCE UNITS RANGE LAB WSR 0-20 mm/hr Sed Rate High Westergren 22 Performed By: #### CBC, WSR, CK, CMP, LIPB, MG1, FT4, TSH, VITD #### [facility] [place] [place], [place] [address] CK Collected: 10/17/2017 Status: F Source: [facility] 10:20 AM [facility] REPOSITORY TYPE CODE TESTS RESULT OUT OF RANGE REFERENCE UNITS LAB CK 42-196 U/L CK 106 Result Comment: Please note the updated, gender-specific reference range for this test (effective 03/09/2016). Performed By: #### CBC, WSR, CK, CMP, LIPB, MG1, FT4, TSH, VITD #### [facility] [place] [address] [place], [place] [address] COMP METABOLIC PANEL Collected: 10/17/2017 Status: F Source: STURGEON 10:20 AM [facility] REPOSITORY TYPE CODE TESTS RESULT OUT OF REFERENCE UNITS RANGE LAB TP 6.3-8.0 g/dL Protein, Total 7.0 LAB ALB 3.9-4.9 g/dL Albumin 4.0 LAB CA 8.5-10.2 mg/dL Calcium, Total 9.7 LAB TBIL 0.2-1.3 mg/dL Bilirubin, Total 0.4 LAB ALKP 32-117 U/L Alkaline Phosphatase 107 LAB AST 13-35 U/L AST High 66 LAB GLU 74-99 mg/dL Glucose 93 Result Comment: The [place] Diabetes Association (ADA) provides guidance for cutoff [...] Standards of Medical Care in Diabetes 2016, [place] [employer]. Diabetes Care. 2016.39(Suppl 1). LAB [...] CMP, LIPB, MG1, FT4, TSH, VITD #### [facility] [address] [place] [id number] LIPID PANEL, BASIC Collected: 10/17/2017 Status: F Source: [place]GE[place] 10:20 AM [facility] REPOSITORY TYPE CODE TESTS RESULT [...] Desk Reference: National Heart, Lung, and Blood [place]. National Institutes of Health. 2001: NIH Publication No. 01-3305. 2. An International Atherosclerosis Society position paper: global recommendations for the management of dyslipidemia: executive summary, Atherosclerosis. 2014: 232(2):410-413. Performed By: #### CBC, WSR, CK, CMP, LIPB, MG1, FT4, TSH, VITD #### [facility] [place] [address] [place] [address] MAGNESIUM Collected: 10/17/2017 Status: F Source: [place] 10:20 AM [facility] REPOSITORY TYPE CODE TESTS RESULT OUT OF REFERENCE UNITS RANGE LAB MG 1.7-2.3 mg/dL Magnesium 2.2 Performed By: #### CBC, WSR, CK, CMP, LIPB, MG1, FT4, TSH, VITD #### [facility] [place] [address] [place] [address] FREE T4 Collected: 10/17/2017 Status: F Source: [place] 10:20 AM [facility] REPOSITORY TYPE CODE TESTS RESULT OUT OF RANGE REFERENCE UNITS LAB FT4 0.9-1.7 ng/dL Free T4 1.6 Performed By: #### CBC, WSR, CK, CMP, LIPB, MG1, FT4, TSH, VITD #### [place] [address] TSH Collected: 10/17/2017 Status: F Source: [place] 10:20 AM [facility] REPOSITORY TYPE CODE TESTS RESULT OUT OF RANGE REFERENCE UNITS LAB TSH 0.400-5.500 uU/mL TSH 1.150 Performed By: #### CBC, WSR, CK, CMP, LIPB, MG1, FT4, TSH, VITD #### [facility] [place] [address] [place] [address] VITAMIN D 25 HYDROXY Collected: 10/17/2017 Status: F Source: [place] 10:20 AM [facility] REPOSITORY TYPE CODE TESTS RESULT [...] CMP, LIPB, MG1, FT4, TSH, VITD #### [place] [address] PROGRESS Observed: 10/17/2017 Status: COMPLETED Source: STURGEON 9:16 AM [facility] [place] REPOSITORY O ID: [id number] Author: Russell Shell Service: (none) Author Type: [...] cervical radiculopathy that resolved already. Hurts to painter chassis place too long. Cannot sit too long either. PAST MEDICAL HISTORY Diagnosis Date - Internal hemorrhoids without mention of complication - Obesity, unspecified - Other and unspecified hyperlipidemia - Personal history of malignant neoplasm of thyroid - Postsurgical hypothyroidism 07/16/2007 - Vertigo 02/15/2005 - VITAMIN D DEFICIENCY NOS 09/04/2008 Current Outpatient Prescriptions: Reafhhrnzop-Feijaqbhp-Rzn C-Mn (GLUCOSAMINE CHONDROITIN MAXSTR) 500-400 mg cap [...] week for leg cramps as needed (3 pelmazao=283ou) cholecalciferol, Vitamin D3, (VITAMIN D3) 50,000 unit [...] Pancreatic cancer [OTHER] Mother - Heart Father [place] at 59 yo and from [place], THYROID DYSFUNCTION, DM (smoker and overweight) - [...] counseling and/or coordinating care for the patient. Gzbn-rk-biup time was at least 40 minutes. Russell Shell MD CNOV Observed: 10/17/2017 Status: COMPLETED Source: STURGEON 8:20 AM [facility] REPOSITORY Office Visit (INTMWS) JOANIE MCKEON ([id number]) 1950 F Date Time Provider Department 10/17/17 [...] cervical radiculopathy that resolved already. Hurts to painter chassis place too long. Cannot sit too long either. PAST MEDICAL HISTORY Diagnosis Date - Internal hemorrhoids without mention of complication - Obesity, unspecified - Other and unspecified hyperlipidemia - Personal history of malignant neoplasm of thyroid - Postsurgical hypothyroidism 07/16/2007 - Vertigo 02/15/2005 - VITAMIN D DEFICIENCY NOS 09/04/2008 Current Outpatient Prescriptions: Gefwqsffzjx-Yjnbplnsd-Lks C-Mn (GLUCOSAMINE CHONDROITIN MAXSTR) 500-400 mg cap [...] week for leg cramps as needed (3 libgxbnq=860sn) cholecalciferol, Vitamin D3, (VITAMIN D3) 50,000 unit [...] Pancreatic cancer [OTHER] Mother - Heart Father [place] at 59 yo and from [place], THYROID DYSFUNCTION, DM (smoker and overweight) - [...] counseling and/or coordinating care for the patient. Mnqf-mw-lssb time was at least 40 minutes. MD [...] [M79.1] Order(s):COMP METABOLIC PANEL [SQCMP] Order #: [id number] FUTURE CK CREATINE KINASE [SQCK] Order #: [id number] FUTURE T4 FREE/FREE THYROX [SQFT4] Order #: [id number] FUTURE TSH BLD [SQTSH] Order #: [id number] FUTURE SED RATE WESTERGREN [SQWSR] Order #: [id number] FUTURE VITAMIN D 25 HYDROXY [SQVITD] Order #: [id number] FUTURE MAGNESIUM BLD [SQMG1] Order #: [id number] FUTURE CBC [SQCBC] Order #: [id number] FUTURE LIPID PANEL BASIC [SQLIPB] Order #: [id number] FUTURE Prescriptions as of 10/17/2017 Sig: EWZXTKKIGCY-LVNQDADHM-ZHO C-M* Take 1 capsule by mouth once [...] 10/30/17 PROGRESS Observed: 07/04/2017 Status: COMPLETED Source: STURGEON 3:05 PM [facility] [place] REPOSITORY O ID: [id number] Author: Sharmila (Holli) Older Service: (none) Author [...] [facility] - PAST SURGICAL HISTORY OF ~2004 arthroscopic knee surgery - REMOVAL OF TONSILS,<12 Y/O - THYROIDECTOMY 1996 - TOTAL KNEE REPLACEMENT Bilateral 03/2014 Knee replacement, total ALLERGIES Neomycin; Peanuts; Quinine MEDICATIONS Jdpexhxlevu-Iqpxynlud-Bnz C-Mn (GLUCOSAMINE CHONDROITIN MAXSTR) 500-400 mg cap [...] week for leg cramps as needed (3 oaigbugl=111hz) methylPREDNISolone (MEDROL DOSE-PACK) 4 mg Dose-Pack Take [...] Pancreatic cancer [OTHER] Mother - Heart Father [place] at 59 yo and from [place], THYROID DYSFUNCTION, DM (smoker and overweight) - [...] APRN.HOLLI CNOV Observed: 07/04/2017 Status: COMPLETED Source: STURGEON 2:40 PM [facility] REPOSITORY Office Visit (INTMWS) JOANIE MCKEON ([id number]) 1950 F Date Time Provider Department 07/04/17 [...] replacement, total ALLERGIES Neomycin; Peanuts; Quinine MEDICATIONS Pniaifovsgw-Wmbohzygi-Lzm C-Mn (GLUCOSAMINE CHONDROITIN MAXSTR) 500-400 mg cap [...] once each week. VIT A,C ANDamp; E/B3/B2/LUT/MIN/GLUT (EYE-INK ORAL) Take by mouth once daily. MULTI-VITAMIN ORAL Take by mouth once daily. SYNTHROID 137 mcg tablet Take 1 tablet by mouth as directed. To replace 150 mcg dose one or two days weekly as directed based on labs Magnesium 200 mg tab Take by mouth. Takes (1) 125 mg per week for leg cramps as needed (3 qqouchrl=588vq) methylPREDNISolone (MEDROL DOSE-PACK) 4 mg Dose-Pack Take [...] Pancreatic cancer [OTHER] Mother - Heart Father [place] at 59 yo and from [place], THYROID DYSFUNCTION, DM (smoker and overweight) - [...] Date Reviewed: 07/04/2017 Reviewed by: Marimar Julio Hop Trainer - Fully Assessed Reason for Visit: Established Patient [175] Cmt: elevated blood pressure with headaches occuring daily x 3 weeks Primary Visit Diagnosis:Elevated blood-pressure reading, without diagnosis of hypertension [R03.0] Prescriptions as of 07/04/2017 Sig: YAXTREVAJZQ-ZLMDAMGJE-RNX C-M* Take 1 capsule by mouth once [...] 07/05/17 PROGRESS Observed: 04/04/2017 Status: COMPLETED Source: STURGEON 9:10 AM [facility] REPOSITORY HNO ID: [id number] Author: Russell Shell Service: (none) Author Type: [...] week for leg cramps as needed (3 cwilmzkm=968an) methylPREDNISolone (MEDROL DOSE-PACK) 4 mg Dose-Pack Take [...] counseling and/or coordinating care for the patient. Pvyq-bj-tgqy time was at least 25 minutes. Russell Shell MD CNOV Observed: 04/04/2017 Status: COMPLETED Source: STURGE[place] 8:40 AM [facility] REPOSITORY Office Visit (INTMWS) JOANIE MCKEON ([id number]) 1950 F Date Time Provider Department 04/04/17 [...] week for leg cramps as needed (3 pdhuvfyx=211fy) methylPREDNISolone (MEDROL DOSE-PACK) 4 mg Dose-Pack Take [...] counseling and/or coordinating care for the patient. Hcoo-cm-utsy time was at least 25 minutes. MD [...] Screening for breast cancer [Z12.31] Order(s):CHER SCREENING [3106493] Order #: [id number] FUTURE TSH BLD [SQTSH] Order #: [id number] STANDING T4 FREE/FREE THYROX [SQFT4] Order #: [id number] STANDING Prescriptions as of 04/04/2017 Sig: SYNTHROID [...] METABOLIC PANEL Collected: 03/28/2017 Status: F Source: [place]GE[place] 10:25 AM [facility] REPOSITORY TYPE CODE TESTS RESULT OUT OF REFERENCE UNITS RANGE LAB TP 6.3-8.0 g/dL Protein, Total 7.5 LAB ALB 3.9-4.9 g/dL Albumin 4.1 LAB CA 8.5-10.2 mg/dL Calcium, Total 9.5 LAB TBIL 0.2-1.3 mg/dL Bilirubin, Total 0.6 LAB ALKP 32-117 U/L Alkaline High Phosphatase 123 LAB AST 13-35 U/L AST High 68 LAB GLU 74-99 mg/dL Glucose 98 Result Comment: The [place] Diabetes Association (ADA) provides guidance for cutoff [...] Standards of Medical Care in Diabetes 2016, [place] Diabetes Association. Diabetes Care. 2016.39(Suppl 1). LAB [...] LIPB, MG1, TSH, FT4, VITD, TG #### [facility] [address] [place] [id number] LIPID PANEL, BASIC Collected: 03/28/2017 Status: F Source: STURGEON 10:25 AM [facility] REPOSITORY TYPE CODE TESTS RESULT [...] LIPB, MG1, TSH, FT4, VITD, TG #### [place] [address] [place] [address] MAGNESIUM Collected: 03/28/2017 Status: F Source: [place] 10:25 AM [facility] REPOSITORY TYPE CODE TESTS RESULT OUT OF REFERENCE UNITS RANGE LAB MG 1.7-2.3 mg/dL Magnesium 2.3 Performed By: #### CMP, LIPB, MG1, TSH, FT4, VITD, TG #### [place] [phone] TSH Collected: 03/28/2017 Status: F Source: STURGEON 10:25 AM [facility] REPOSITORY TYPE CODE TESTS RESULT OUT OF RANGE REFERENCE UNITS LAB TSH 0.400-5.500 uU/mL TSH 4.200 Performed By: #### CMP, LIPB, MG1, TSH, FT4, VITD, TG #### [place] [address] [place] [address] FREE T4 Collected: 03/28/2017 Status: F Source: [place] 10:25 AM [facility] REPOSITORY TYPE CODE TESTS RESULT OUT OF RANGE REFERENCE UNITS LAB FT4 0.9-1.7 ng/dL Free T4 1.1 Performed By: #### CMP, LIPB, MG1, TSH, FT4, VITD, TG #### [place] [phone] VITAMIN D 25 HYDROXY Collected: 03/28/2017 Status: F Source: STURGEON 10:25 AM [facility] REPOSITORY TYPE CODE TESTS RESULT OUT OF REFERENCE UNITS RANGE LAB VITD 31.0-80.0 ng/mL Vitamin D 25 53.7 Hydroxy Result Comment: Classification of 25 [place] Vitamin D status: Insufficiency/Moderate Deficiency: < or = 30 ng/mL Sufficiency/Optimal Levels: 31 to 80 ng/mL Toxicity: > 100 ng/mL Test performed by chemiluminescent immunoassay. Performed By: #### CMP, LIPB, MG1, TSH, FT4, VITD, TG #### [facility] [place] [address] [place], [place] [address] THYROGLOBULIN Collected: 03/28/2017 Status: F Source: [place]GE[place] 10:25 AM [facility] [place] REPOSITORY TYPE CODE TESTS RESULT OUT OF REFERENCE UNITS RANGE LAB THYG 1.6-59.9 ng/mL Thyroglobulin Low <0.2 Result Comment: Test analyzed by the Siemens Immulite method LAB TGABS <14.4 IU/mL TG Antibody Screen 1.5 Performed By: #### CMP, LIPB, MG1, TSH, FT4, VITD, TG #### [facility] [address] [place], [place] [address] ALLERGIES ALLERGIES DATE TYPE / CODE NAME / CODE REACTION SEVERITY SOURCE 02/13/2018 Drug peanut/[id number] Shortness of Unknown [place] [facility] Allergy/416 68(RXNORM) [facility] 541566(SNOM Repository ED CT) 02/13/2018 Drug neomycin/I02964 Rash Unknown [facility] [facility] Allergy/416 2775(RXNORM) [facility] 115024(SNOM Repository ED CT) 02/13/2018 Drug quinine/F125225 Other Unknown [facility] [facility] Allergy/416 934(RXNORM) [facility] 879605(SNOM Repository ED CT) 05/18/2014 DRUG NEOMYCIN RASH [facility] INGREDI/419 [facility] 181052(SNOM Repository ED CT) 07/03/2007 DRUG QUININE [facility] INGREDI/419 [facility] 577345(SNOM Repository ED CT) 02/15/2005 Food/605760 PEANUTS [facility] 000(SNOMED Main [place]) Repository ENCOUNTERS ENCOUNTERS ADMIT/DISCHARGE ACCOUNT ADMITTING ENCOUNTER LOCATION SOURCE NUMBER CLASS 02/20/2018 [id number] Ambulatory [facility] ing:RAD Repository 02/19/2018/02/20/[id number] ing:ENRoom: Repository AC17 02/19/2018/02/20/20 [id number] Ambulatory BMSBuilding:B [place] [address] MS.CF.[facility] Repository 12/28/2017/12/29/19 [id number] Ambulatory BMSBuilding:B [place] 18 MS.A [facility] Repository 12/12/2017/12/13/19 [id number] Ambulatory [address] Repository 10/17/2017/10/18/19 [id number] Ambulatory [address] Repository 10/17/2017/11/01/19 [id number] Ambulatory [address] Repository 10/10/2017/10/11/19 [id number] Ambulatory [address] Repository 07/04/2017/07/07/19 [id number] Ambulatory [address] Repository 04/04/2017/04/04/19 [id number] Ambulatory [address] Repository 03/28/2017 [id number] Ambulatory [facility] Repository PAYERS PAYERS ENCOUNTER GUARANTOR PAYER SUBSCRIBER SOURCE 02/20/2018 JOANIE R Primary JOANIE R Marie [id number] Insurance:MEDICARE MEILINGERDOB: [facility], PART A [id number] [address]Vet: Number: Repository [id number] (HP) Date:2018-02-19 02/20/2018 Secondary JOANIE R Marie Insurance:AARolic MEILINGERDOB: [facility] Number: [id number] [facility] [id number] Repository Date:0142-83-44[address], [place] [address]GD: 02/20/2018 Tertiary NOT GIVENUNK Marie Insurance:SELF PAY [facility] Number: Effective Repository Date:2018-02-19 02/19/2018 ADRIAN Kimbrough Primary JOANIE R [place] [id number] Insurance:MEDICARE MEILINGERDOB: [facility], PART A [facility] [id number] [facility] Hospital [address]Wrb: Number: Repository [id number] (HP) Date:2017-12-28 02/19/2018 Secondary JOANIE R [place] Insurance:AARPPolicy MEILINGERDOB: Community Number: [id number] [facility] [id number] Repository Date:1619-15-84[address], [place] [address]FO: 02/19/2018 Tertiary NOT GIVENUNK Marie Insurance:SELF PAY [facility] Number: Effective Repository Date:2017-12-28 02/19/2018 ADRIAN I Primary JOANIE R Marie [id number] Insurance:MEDICARE MEILINGERDOB: [facility] NICK VERDUZCOKENNET[place]IN, PART A BPolicy [id number] General Hospital [address]Nxz: Number: Repository [id number] (HP) Date:2017-12-28 02/19/2018 Secondary JOANIE R Marie Insurance:AARPPolicy MEILINGERDOB: Community Number: [id number] Hospital [id number] Repository Date:2319-37-13JF [facility] [place], [place] [address]JP: 02/19/2018 Tertiary NOT GIVENUNK Marie Insurance:SELF PAY [facility] Number: Effective Repository Date:2018-02-19 12/28/2017 ADRIAN I Primary ADRIAN I Marie [id number] Insurance:ABDUL MEILINGERDOB: [facility] [address] RULEPolicy Number: [id number] General Hospital [address]Bsv: [phone] Repository Date: () [place] [address]CZ: 12/28/2017 Secondary NOT GIVENUNK Marie Insurance:SELF PAY [facility] Number: Effective Repository Date:2017-12-28
== END ==
PROVIDERS: Family Provider Internal Medicine; PCP Internal Medicine; Referring Provider Surgery; Visit Provider Surgery
DX: Z12.10 Encounter for screening for malignant neoplasm of intestinal tract, unspecified (principal)
CPT/HCPCS: 74018

== ENCOUNTER → 2020-12-30 | Outpatient (CLI) | payer MEDICARE, OTHER, SELFPAY ==
[2021-01-05 09:08] LABS: HSV 1 By PCR Negative (Negative)
[2021-01-05 12:30] LABS: HSV 2 By PCR Negative (Negative)
== END | disposition home or self-care (01) ==
LOC: LABSPEC 12:40
PROVIDERS: Referring Provider Dermatology; Visit Provider Dermatology
DX: L08.9 Local infection of the skin and subcutaneous tissue, unspecified (principal)
CPT/HCPCS: 87070; 87077; 87186; 87205; 87529; 87798